=== PATIENT | female | born 1950 | race Caucasian/White ===

== ENCOUNTER 2021-08-15 08:20 | Day surgery (SDC) | payer MEDICARE ==
[~2021-08-15] VITALS: Ht 162.6 cm; Wt 95.0 kg
[~2021-08-15 08:20] MED LIST: CLARITIN10 M1 PO; IBUPROFEN600 MG PO; PENICILLIN V P250 MG PO; PREDNISONE20 MG PO; PRILOSEC10 M1 PO; PROVENTIL HFA6.7 GM INH; TYLENOL325 MG PO; ZYRTEC10 M1 PO; ZYRTEC10 MG PO
[2021-08-15] MEDS ORDERED: IBUPROFEN600 MG PO (11:47)
[2021-08-15] MEDS ORDERED: OXYCODON-ACETA1 EAC2 PO (11:48)
[2021-08-15] MEDS ORDERED: ACETAMINOPHEN500 MG PO (11:48)
--- NOTE | 2021-08-18 15:05 | OR ---
[facility] [address] [place], [place] [address] Signed DATE OF OPERATION: 08/15/2021 SURGEON: Andrew Talbot MD PREOPERATIVE DIAGNOSIS: Posterior anal mass suspicious for renal carcinoma. POSTOPERATIVE DIAGNOSES: 1. Anal carcinoma. 2. Extensive involvement including fibrotic sphincter and ulceration, low rectum. 3. Possible posterior vaginal extension of tumor. PROCEDURES: 1. Exam under anesthesia. 2. Rigid proctoscopy to 18 cm. 3. Excision of anal tumor. 4. Biopsies posterior vaginal wall. ANESTHESIA: Saddle block, Emilio Lundy, MANAGER HUMAN RESOURCES INDICATIONS: This 71-year-old white woman is urgently referred by KRYSTAL Kendall with an anal mass worrisome for malignancy based on clinical examination in the office. She has a considerable amount of pain associated with this and evaluation in office showed a protruding, firm and rubbery mass in the anal canal, which was exquisitely tender and unable to be manipulated or even reasonably biopsied. 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 She has had nonresponse to treatment for presumed hemorrhoidal disease for the past 4-6 months. I have recommended at this time she undergo exam under anesthesia and excision of the tumor if possible, biopsies and other indicated procedures including rigid proctoscopy. Risk of bleeding, infection, and so forth were related to this problem were reviewed in detail. She understands and wished to proceed. FINDINGS: In the prone chad-knife position, good examination could be undertaken. Quite obviously, she does have anal carcinoma. A butterfly Wing type neoplasm was noted in Electronically Signed By: ANDREW TALBOT MD 08/18/21 1505 PATIENT NAME: HEDY MORA OPERATIVE REPORT DATE OF : 50 REPORT #: [id number] PHYSICIAN: ANDREW TALBOT MD PCP: KIMBERLI ATWOOD PAC REPORT IS CONFIDENTIAL AND NOT TO BE RELEASED WITHOUT AUTHORIZATION [facility] [address] [place], [place] [address] Signed the anterior aspect extending from approximately 4 o'clock to 8 o'clock position cephalad to this in the region, which would correspond to the dentate line with deep ulceration. Cephalad to that was essentially rectal mucosa from the ulcerated area. The affect of the tumor included penetration into the sphincter complex almost certainly. Posterior vaginal canal examination showed near continuity of the neoplasm ulceration to the posterior wall. Biopsies were taken of the deep ulcerated portion as well as the neoplasm of the anal area externally as well. Biopsies were additionally taken from the posterior vaginal wall to assess for direct penetration of tumor to the posterior vaginal wall. It was somewhat surprising that she has not had compromised the sphincter muscle given the clinical findings. DESCRIPTION OF PROCEDURE: The patient was brought to the operating room, given a saddle block anesthetic and placed in a prone chad-knife position. Preoperative antibiotics were given. Sequential compression device stockings used and heparin subcutaneously administered. The buttocks were taped apart and the perineum prepared with a chlorhexidine solution and draped sterilely. Examination under relaxation showed a butterfly like configuration of quite obvious anal carcinoma extruding through the anal canal. Cephalad to this was a deep ulcerated area anteriorly. Cephalad to that was a rectal mucosa which had essentially from the anal canal area itself. Digital examination confirmed these findings more fully. The posterior vaginal examination showed a density in the rectovaginal septum. No doubt related to penetration of tumor into that area. Rigid proctoscopy after irrigation was undertaken to approximately 18 cm, which showed no more proximal lesion. Photographs were taken. Biopsies were then taken of the deep ulcerated area as well as the more proximal and peripheral areas of the ulcerated portion. The bulky anal tumor was excised with electrocautery down to, but not penetrating through the sphincter muscle, which almost certainly was involved; it appeared very fibrotic and probably tumor infiltrated. Careful palpation the deep ulcerated area of the rectum anteriorly in continuity with a palpation of the rectovaginal septum from the vaginal side made it clear as imminent rectovaginal fistula would be forming. Using a cup biopsy device, biopsies were taken the posterior vaginal wall in this area to assess the extent of tumor penetration if any. Electronically Signed By: ANDREW TALBOT MD 08/18/21 1505 PATIENT NAME: HEDY MORA OPERATIVE REPORT DATE OF : 50 REPORT #: [id number] PHYSICIAN: ANDREW TALBOT MD PCP: KIMBERLI ATWOOD [facility] REPORT IS CONFIDENTIAL AND NOT TO BE RELEASED WITHOUT AUTHORIZATION [address] [address] Signed Irrigation was undertaken. There was no untoward bleeding. Both sites were packed with rolled Gel-Foam with bacitracin. The patient was returned to the supine position, ultimately taken to the recovery room in good condition having suffered no complications. Sponge, needle, and instrument counts reported as correct x3. MD WILIAN Gracia/ERICAL /[id number] cc: Roni Beaver MD, PH.D. KRYSTAL Kendall MD Copies: RONI BEAVER ROBERT C MD ~ Electronically Signed By: ANDREW TALBOT MD 08/18/21 1505 PATIENT NAME: HEDY MORA OPERATIVE REPORT DATE OF : 50 REPORT #: [id number] PHYSICIAN: ANDREW TALBOT MD PCP: KIMBERLI ATWOOD PAC REPORT IS CONFIDENTIAL AND NOT TO BE RELEASED WITHOUT AUTHORIZATION
--- NOTE | 2021-08-19 15:55 | PATH ---
[facility] [address] [place], [place] [address] Signed SPECIMEN(S): A LOW RECTAL BIOPSY SPECIMEN(S): B ANAL TUMOR SPECIMEN(S): C LOW POSTERIOR VAGINAL WALL SPECIMEN SOURCE: A. LOW RECTAL BIOPSY B. ANAL TUMOR C. LOW POSTERIOR VAGINAL WALL CLINICAL HISTORY: Anal mass. History of HPV. Rigid proctoscopy with biopsy of anorectal mass and possible excision of rectal tumor. FINAL PATHOLOGIC DIAGNOSIS: A. Low rectal, biopsies: - Invasive squamous cell carcinoma, poorly differentiated. B. Anal tumor resection: - Invasive squamous cell carcinoma, poorly differentiated, involving deep and lateral resection margins; see comment. C. Low posterior vaginal wall, biopsies: - Invasive squamous cell carcinoma, poorly differentiated. COMMENT: Properly controlled immunohistochemical stains were performed on block B3. The tumor cells are positive for p63 and show strong, diffuse block positivity for p16. 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 A diagnostic alert was initiated by Dr. Noonan on 08/19/2021. As part of [facility]' Quality Improvement Program, this case was reviewed by another member of our pathology staff. DDF:cml:C1NR MICROSCOPIC EXAMINATION: Histologic sections of all submitted blocks are examined by light microscopy. These findings, together with the gross examination, support the pathologic diagnosis. GROSS DESCRIPTION: Three specimens are received in three containers, labeled "IG." A. The specimen, labeled "IG, A," and designated on the requisition "low rectal biopsy," is received in formalin and consists of multiple fragments of PATIENT NAME: HEDY MORA PATHOLOGY DATE OF : 50 REPORT #: [id number] PHYSICIAN: TRACIE LAM PCP: KIMBERLI ATWOOD PAC REPORT IS CONFIDENTIAL AND NOT TO BE RELEASED WITHOUT AUTHORIZATION [facility] [address] [place], [place] [address] Signed red-brown soft tissue (1.5 x 0.7 x 0.2 cm in aggregate). The specimen is submitted entirely in cassette (A1). B. The specimen, labeled "IG, B," and designated on the requisition "anal tumor," is received in formalin and consists of a portion of pink-murguia, fragmented and irregularly shaped soft tissue (4.8 x 2.4 x 1.4 cm). The resection margin is inked blue and the specimen is serially sectioned and submitted entirely in cassettes (B1-B4). C. The specimen, labeled "IG, C," and designated on the requisition "low posterior vaginal wall," is received in formalin and consists of multiple fragments of murguia soft tissue (1.5 x 0.8 x 0.2 in aggregate). The specimen is submitted entirely in cassette (C1). AC (under the direct supervision of a pathologist) The Gross Description was prepared using a voice recognition system. The report was reviewed for accuracy; however, sound-alike word errors, addition and/or deletions may occur. If there is any question about this report, please contact Client Services. ADDITIONAL NOTES: Immunohistochemical and/or in situ hybridization studies were performed on this case with the appropriate positive controls that react as expected. This test was developed and its performance characteristics determined by [facility]. It has not been cleared or approved by the U.S. Food and Drug Administration. The FDA has determined that such clearance or approval is not necessary. This test is used for clinical purposes. It should not be regarded as investigational or for research. [facility] is certified under the Clinical Laboratory Improvement Amendments of 1988 (CLIA) as qualified to perform high complexity clinical laboratory testing. This assay has not been validated for specimens that have been decalcified. PERFORMING LABORATORY: The technical component was performed by [facility], [address] [place] [id number] (Link Cutter: Noreen Huynh MD; CLIA# [id number]). [facility], [address] [address] (CLIA# [id number]). Diagnostician: Jose D Noonan DO Pathologist Electronically Signed 08/19/2021 PATIENT NAME: HEDY MORA PATHOLOGY DATE OF : 50 REPORT #: [id number] PHYSICIAN: TRACIE LAM PCP: KIMBERLI ATWOOD PAC REPORT IS CONFIDENTIAL AND NOT TO BE RELEASED WITHOUT AUTHORIZATION [facility] [address] [place], [place] [address] Signed Copies: ~ PATIENT NAME: HEDY MORA PATHOLOGY DATE OF : 50 REPORT #: [id number] PHYSICIAN: TRACIE PATHOLOGY PCP: KIMBERLI ATWOOD PAC REPORT IS CONFIDENTIAL AND NOT TO BE RELEASED WITHOUT AUTHORIZATION
== END 2021-08-15 12:20 | disposition home or self-care (01) ==
LOC: DS 08:20
PROVIDERS: ATTEND Surgery
PROC: 0UBG7ZX Excision of Vagina, Via Natural or Artificial Opening, Diagnostic (ICD-10-PCS; 2021-08-15)
PROC: 0DBP8ZX Excision of Rectum, Via Natural or Artificial Opening Endoscopic, Diagnostic (ICD-10-PCS; principal; 2021-08-15 11:15)
DX: C20 Malignant neoplasm of rectum (principal); C21.0 Malignant neoplasm of anus, unspecified; C52 Malignant neoplasm of vagina; J45.909 Unspecified asthma, uncomplicated; Z86.19 Personal history of other infectious and parasitic diseases; Z88.2 Allergy status to sulfonamides; Z88.8 Allergy status to other drugs, medicaments and biological substances
CPT/HCPCS: 00902; J0690; J2001; J2250; J2704

== ENCOUNTER 2021-08-28 06:35 | Day surgery (SDC) | payer MEDICARE ==
[~2021-08-28] VITALS: Ht 162.6 cm; Wt 95.0 kg
[~2021-08-28 06:35] MED LIST changes: +ACETAMINOPHEN500 MG PO; +OXYCODON-ACETA1 EAC2 PO
--- NOTE | 2021-08-28 10:45 | NUR ---
08/28/21 1045 Ej Leger RESPONDS TO TAP AND VOICE AT 1042. REORIENTED TO TIME AND SITUATION. UNABLE TO RESPOND TO QUESTIONS YET.
[2021-08-28] MEDS ORDERED: ACETAMINOPHEN500 MG PO (10:59)
[2021-08-28] MEDS ORDERED: OXYCODON-ACETA1 EAC2 PO (10:59)
--- NOTE | 2021-08-28 13:15 | NUR ---
PT ALERT, OREINTED AND SUPPORTED BY HER DAUGHTER LEORA. PT EMBARRASED THAT SHE HAS NOT HAVE HER TEETH IN. GAVE ENCOURAGEMENT, ALL QUESTIONS ASKED ANSWERED. PT DECLINED PRAYER, GOT EMOTIONAL. THANKED ME FOR COMING IN.
--- NOTE | 2021-08-28 19:31 | OR ---
[facility] [address] [place], [place] [address] Signed DATE OF OPERATION: 08/28/2021 SURGEON: Andrew Talbot MD PREOPERATIVE DIAGNOSIS: Advanced anal carcinoma, anticipating chemotherapy. POSTOPERATIVE DIAGNOSIS: Advanced anal carcinoma, anticipating chemotherapy. PROCEDURES: 1. Placement of left subclavian Bard port catheter. 2. Surgeon-directed fluoroscopy. ANESTHESIA: LMAC (local with monitored anesthesia care) Roberta Celestin CRNA. Marcaine 0.25% with epinephrine 15 mL. INDICATION: This 71-year-old white woman is a patient of Kimberli Atwood. She recently underwent exam under anesthesia and excision of an anal carcinoma, which has rather advanced local features. Plans are underway to initiate chemotherapy soon in addition to radiation therapy. On that basis, a Port-A-Cath device is needed on a somewhat urgent basis. Consideration has been made for a diverting colostomy as well given the advanced nature of the problem and might soon be considered as well. For today, she is here to undergo Port-A-Cath device placement understanding the risks of bleeding, infection, pneumothorax and so on. Of note, the patient prefers a left infraclavicular approach if possible rather than a right-sided internal jugular approach as she is right-hand dominant and believes that might impair her activities (generally would not of course). FINDINGS: Left subclavian vein was easily accessed on single pass showing dark nonpulsatile blood. The catheter was placed with the assistance of fluoroscopic control situated in the superior vena cava. Postoperative chest x-ray shows good placement of the catheter without kink or abnormality and no evidence of complication. DESCRIPTION OF PROCEDURE: The patient was brought to the operating room, placed in the supine position, given intravenous sedation with a combination of agents by the template fitter. The upper torso including neck, bilateral was prepared with a chlorhexidine solution and draped Electronically Signed By: ANDREW TALBOT MD 08/28/211930 PATIENT NAME: HEDY MORA OPERATIVE REPORT DATE OF : 50 REPORT #: [id number] PHYSICIAN: ANDREW TALBOT MD PCP: KIMBERLI ATWOOD PAC REPORT IS CONFIDENTIAL AND NOT TO BE RELEASED WITHOUT AUTHORIZATION [facility] [address] [place], [place] [address] Signed sterilely. Preoperative antibiotic Ancef was given. Sequential compression device stockings were used. After sterile draping, 0.25% Marcaine with epinephrine injected in the left infraclavicular space. Using the Seldinger technique, the left subclavian vein was easily accessed showing dark nonpulsatile blood. A flexible J-wire was passed down the needle and the needle was then removed. Fluoroscopy was used to confirm the wire in the right heart system. Injection of additional local anesthetic transversely over the left pectoralis was undertaken. A transverse incision was made and a pocket created using blunt and electrocautery dissection. A port device was partially secured to the pectoralis fascia. This was using 2-0 Vicryl suture. The site from which the wire emanating was incised with an #11 blade and subsequently dilated and using a dilator and peel-away sheath introducer, these were passed over the wire. The wire and the dilator were removed showing vigorous dark retrograde nonpulsatile bleeding of dark blood. The previously inspected Groshong-tip catheter was passed through the peel-away introducer and the peel-away introducer removed without problem. The patient was taken out of Trendelenburg position and placed in neutral position and under fluoroscopic control, the catheter was withdrawn and situated in the superior vena cava. A tunneling device was used to deliver the catheter to the pocket. The catheter was trimmed to the appropriate length and secured to the port device with the enclosed collar device per manufacture's instructions. The port was then secured to the pectoralis fascia with interrupted 2-0 Vicryl suture, which had been partially placed already. Access of the port with an angled Causey needle allowed for easy withdrawal of dark non-pulsatile blood and easy infusion as well. An additional fluoroscopic view of the situated catheter showed no kink or other abnormality to the device. The pocket was then closed with interrupted 2-0 Vicryl and skin closed with running subcuticular 3-0 Vicryl including the puncture site in the infraclavicular space. Steri-Strips were applied as was an Acticoat dressing. The patient was ultimately allowed to emerge from anesthesia and taken to recovery room in good condition having suffered no known complications. Sponge, needle, and instrument counts reported as correct x3. Electronically Signed By: ANDREW TALBOT MD 08/28/211930 PATIENT NAME: HEDY MORA OPERATIVE REPORT DATE OF : 50 REPORT #: [id number] PHYSICIAN: ANDREW TALBOT MD PCP: KIMBERLI ATWOOD PAC REPORT IS CONFIDENTIAL AND NOT TO BE RELEASED WITHOUT AUTHORIZATION [address], [place] [address] Signed Andrew Talbot MD /MODL /[id number] cc: Roni Boland MD, PH.D. KRYSTAL Monet MD Copies: RONI BOLAND ROBERT C MD ~ Electronically Signed By: ANDREW TALBOT MD 08/28/211930 PATIENT NAME: HEDY MORA OPERATIVE REPORT DATE OF : 50 REPORT #: [id number] PHYSICIAN: ANDREW TALBOT MD PCP: KIMBERLI ATWOOD PAC REPORT IS CONFIDENTIAL AND NOT TO BE RELEASED WITHOUT AUTHORIZATION
== END 2021-08-28 11:50 | disposition home or self-care (01) ==
LOC: DS 06:35
PROVIDERS: ATTEND Surgery
PROC: 05H633Z Insertion of Infusion Device into Left Subclavian Vein, Percutaneous Approach (ICD-10-PCS; principal; 2021-08-28 09:00)
DX: C21.1 Malignant neoplasm of anal canal (principal); J43.9 Emphysema, unspecified; K21.9 Gastro-esophageal reflux disease without esophagitis; Z20.822 Contact with and (suspected) exposure to COVID-19; Z88.2 Allergy status to sulfonamides; Z86.19 Personal history of other infectious and parasitic diseases; Z87.891 Personal history of nicotine dependence
CPT/HCPCS: 00532; 71045; 77001; J0690; J1644; J1885; J2001; J2250; J2704; J3010; J7121; U0003

== ENCOUNTER 2023-10-23 09:09 | Emergency (ER) | payer MEDICARE ==
[~2023-10-23] VITALS: Ht 165.1 cm; Wt 85.7 kg
[~2023-10-23 09:09] MED LIST changes: +ALBUTEROL2.5 MG/3 M INH; +CALCIUM 600 MG1 EA10 PO; +CYCLOBENZAPRINE10 MG PO; +DEXAMETHASONE4 MG PO; +ENOXAPARIN80 MG/0.8 SUB-Q; +FLUTICASONE-SA1 EAC4 INH; +JANTOVEN5 MG PO; +LIPITOR20 MG PO; +LORAZEPAM1 MG PO; +METOPROLOL SUCC25 MG PO; +ONDANSETRON ODT8 MG PO; +POTASSIUM CHLO20 ME1 PO; +PRILOSEC OTC20 MG PO; -PRILOSEC10 M1 PO; +VENTOLIN HFA18 GM INH; +WARFARIN SODIUM1 MG PO
[2023-10-23] MEDS ORDERED: SODIUM CHLORIDE 0.9% 1,000 ML IV ONE (09:30)
[2023-10-23] MEDS ORDERED: ondansetron HCL 4 MG/2 ML VIAL IV PRN (09:30)
[2023-10-23 09:57] LABS: BASOPHILS 0.1 % (0-2); HEMATOCRIT 36.3 % (35.0-50.0); HEMOGLOBIN 12.1 g/dL (12.0-18.0); LYMPHOCYTES 3.5 % (24-44); MCH 30.5 (27-36); MCHC 33.4 g/dl (30-36); MCV 91.5 fl (81-99); MONOCYTES 4.1 % (0-12); NEUTROPHILS 92.3 % (39-80); PLATELET COUNT 130 K/uL (140-440); RBC 3.97 M/ul (4.3-5.7)
[2023-10-23 10:19] LABS: INFLUENZA B NAA NEGATIVE (NEGATIVE); RESPIRATORY SYNCYTIAL VIR NAA NEGATIVE (NEGATIVE)
[2023-10-23 10:24] LABS: ALBUMIN 2.4 g/dL (3.4-5.0); ALBUMIN/GLOBULIN RATIO 0.44 (1.1-2.4); BILIRUBIN, TOTAL 0.9 ng/dL (0.2-1.0); BUN/CREATININE RATIO 18.85 (6.0-28.6); CALCIUM 9.3 mg/dL (8.5-10.1); CREATININE, SERUM 1.22 mg/dL (0.55-1.02); PROTEIN, TOTAL 7.9 g/dL (6.4-8.2)
[2023-10-23 10:26] LABS: BILIRUBIN, URINE NEGATIVE (negative); BLOOD/HGB, URINE LARGE (Negative); KETONE, URINE SMALL (Negative); LEUK ESTERASE, URINE TRACE (negative); NITRITE, URINE POSITIVE (negative); PH, URINE 5.5 (5-7)
[2023-10-23 10:31] LABS: BACTERIA, URINE 3+ /hpf (negative); EPITHELIAL CELLS, URINE SQUAMOUS 2+ /lpf (0-1+)
[2023-10-23 10:32] LABS: REFLEX CULTURE, URINE Yes (No)
[2023-10-23] MEDS ORDERED: CEFTRIAXONE/SODIUM CHLORIDE 1 GM/100 ML PIGGYBACK IV ONE (11:15)
[2023-10-23] MEDS ORDERED: CEPHALEXIN500 M1 PO (11:17)
[2023-10-23] MEDS ORDERED: SODIUM CHLORIDE 0.9% 100 ML IV SCH (11:45)
[2023-10-23 12:35] VITALS: BP 112/48
--- NOTE | 2023-10-23 13:08 | EKG ---
[facility] [address] [facility] [place] [address] \T\ T wave abnormality, consider anterolateral ischemia Abnormal ECG When compared with ECG of 09-APR-2023 11:24, Sinus rhythm has replaced Atrial fibrillation Vent. rate has decreased BY 91 BPM Confirmed by Italia Ballard MD () on 10/23/2023 1:08:27 PM Electronically Signed By: ITALIA BALLARD MD 10/23/23 1308 PATIENT NAME: HEDY MORA Electrocardiogram DATE OF : 50 PHYSICIAN: ITALIA BALLARD MD REPORT #: [id number] REPORT IS CONFIDENTIAL AND NOT TO BE RELEASED WITHOUT AUTHORIZATION
== END 2023-10-23 12:35 | disposition home or self-care (01) ==
LOC: ED 09:09
PROVIDERS: Emergency Medicine
DX: N39.0 Urinary tract infection, site not specified (principal); J45.909 Unspecified asthma, uncomplicated; Z88.2 Allergy status to sulfonamides; Z88.1 Allergy status to other antibiotic agents; Z91.048 Other nonmedicinal substance allergy status; Z88.8 Allergy status to other drugs, medicaments and biological substances; Z79.51 Long term (current) use of inhaled steroids; Z79.01 Long term (current) use of anticoagulants
CPT/HCPCS: 36415; 51701; 71045; 80053; 81001; 84484; 85025; 87088; 87502; 93005; 93010; 99285-25; J0696; J2405; J7030; U0002

== ENCOUNTER 2024-03-04 16:03 | Inpatient (IN) | payer MEDICARE ==
[~2024-03-04] VITALS: Ht 165.1 cm; Wt 90.1 kg
[~2024-03-04 16:03] MED LIST changes: +CEPHALEXIN500 M1 PO
[2024-03-04 16:52] LABS: BASOPHILS 0.2 % (0-2); HEMATOCRIT 37.7 % (35.0-50.0); HEMOGLOBIN 12.9 g/dL (12.0-18.0); MCH 30.7 (27-36); MCHC 34.1 g/dl (30-36); MCV 89.8 fl (81-99); MONOCYTES 2.1 % (0-12); NEUTROPHILS 95.7 % (39-80); PLATELET COUNT 164 K/uL (140-440); RDW 14.8 (10.5-15.0)
[2024-03-04 16:59] LABS: LACTIC ACID, BLOOD 1.4 mmol/L (0.4-2.0)
[2024-03-04] MEDS ORDERED: SODIUM CHLORIDE 0.9% 1,000 ML IV PRN (17:00)
[2024-03-04] MEDS ORDERED: CEFTRIAXONE/SODIUM CHLORIDE 2 GM/100 ML PIGGYBACK IV ONE (17:00)
[2024-03-04 17:01] LABS: ALBUMIN 2.9 g/dL (3.4-5.0); ALBUMIN/GLOBULIN RATIO 0.59 (1.1-2.4); BILIRUBIN, TOTAL 1.2 ng/dL (0.2-1.0); BUN/CREATININE RATIO 14.54 (6.0-28.6); CALCIUM 8.2 mg/dL (8.5-10.1); CREATININE, SERUM 1.1 mg/dL (0.55-1.02); PROTEIN, TOTAL 7.8 g/dL (6.4-8.2)
[2024-03-04 19:00] LABS: BILIRUBIN, URINE POSITIVE (negative); BLOOD/HGB, URINE LARGE (Negative); KETONE, URINE NEGATIVE (Negative); LEUK ESTERASE, URINE NEGATIVE (negative); NITRITE, URINE NEGATIVE (negative); PH, URINE 6.5 (5-7)
[2024-03-04 19:11] LABS: CRYSTALS, URINE NONE SEEN (0-1+); EPITHELIAL CELLS, URINE SQUAMOUS 1+ /lpf (0-1+)
[2024-03-04 19:12] LABS: BACTERIA, URINE 1+ /hpf (negative); CASTS, URINE NONE SEEN \\lpf; COLLECTION TYPE, URINE CLEAN CATCH; REFLEX CULTURE, URINE Yes (No)
[2024-03-04] MEDS ORDERED: ondansetron HCL 4 MG/2 ML VIAL IV PRN (20:30)
[2024-03-04] MEDS ORDERED: ACETAMINOPHEN 325 MG TAB PO PRN (20:30)
[2024-03-04] MEDS ORDERED: MELATONIN 3 MG TAB PO PRN (21:00)
[2024-03-04 21:22] VITALS: BP 111/46
[2024-03-04 21:23] VITALS: BP 111/46
[2024-03-04] MEDS ORDERED: DAPTOmycin 500 MG/10 ML VIAL IV SCH (22:00)
[2024-03-04] MEDS ORDERED: SODIUM CHLORIDE 0.9% 1,000 ML IV SCH (22:45)
[2024-03-05] VITALS (12 sets, daily range): BP systolic 101–138; BP diastolic 42–54
[2024-03-05] MEDS ORDERED: ALBUTEROL SULFATE 0.083% 3 ML VIAL INH PRN (02:45)
[2024-03-05 05:58] LABS: BASOPHILS 0.1 % (0-2); HEMATOCRIT 34.9 % (35.0-50.0); HEMOGLOBIN 11.7 g/dL (12.0-18.0); LYMPHOCYTES 3.4 % (24-44); MCH 30.6 (27-36); MCHC 33.5 g/dl (30-36); MCV 91.2 fl (81-99); MONOCYTES 2.5 % (0-12); PLATELET COUNT 131 K/uL (140-440); RBC 3.83 M/ul (4.3-5.7); RDW 15.2 (10.5-15.0)
[2024-03-05 06:10] LABS: INR 1.96 (0.80-1.30); PROTIME 21.4 Sec (11.2-14.2)
[2024-03-05 06:16] LABS: ALBUMIN 2.4 g/dL (3.4-5.0); ALBUMIN/GLOBULIN RATIO 0.56 (1.1-2.4); ANION GAP 12.7 (7-21); BILIRUBIN, TOTAL 0.8 ng/dL (0.2-1.0); BUN/CREATININE RATIO 18.18 (6.0-28.6); CALCIUM 7.8 mg/dL (8.5-10.1); CREATININE, SERUM 0.88 mg/dL (0.55-1.02); MAGNESIUM 1.8 mg/dL (1.8-2.4); PHOSPHORUS, INORGANIC 2.6 mg/dL (2.5-4.9); POTASSIUM 3.7 mmol/L (3.5-5.1); PROTEIN, TOTAL 6.7 g/dL (6.4-8.2)
[2024-03-05] MEDS ORDERED: WARFARIN SOD 2 MG TAB PO SCH (09:00)
[2024-03-05] MEDS ORDERED: AZITHROMYCIN 500 MG in DEXTROSE 5% 250 ML IV SCH (09:00)
[2024-03-05] MEDS ORDERED: MICONAZOLE NITRATE 1 EA BTL TOP SCH (09:00)
[2024-03-05] MEDS ORDERED: PHARMACY RENAL DOSE ADJUSTMENT 1 DOSE MISC PO SCH (12:00)
[2024-03-05] MEDS ORDERED: METOPROLOL SUCCINATE 25 MG TABCR PO SCH (12:39)
[2024-03-05] MEDS ORDERED: CETIRIZINE HCL 10 MG TAB PO SCH (12:39)
[2024-03-05] MEDS ORDERED: PANTOPRAZOLE SODIUM 40 MG TABEC PO SCH (12:39)
[2024-03-05] MEDS ORDERED: CLOTRIMAZOLE 1% 30 GM TUBE TOP SCH (12:52)
[2024-03-05] MEDS ORDERED: WARFARIN PER PHARMACY PROTOCOL PO SCH (16:00)
[2024-03-05] MEDS ORDERED: CEFTRIAXONE/SODIUM CHLORIDE 2 GM/100 ML PIGGYBACK IV SCH (16:00)
[2024-03-05] MEDS ORDERED: ATORVASTATIN 20 MG TAB PO SCH (21:00)
--- NOTE | 2024-03-05 22:33 | EKG ---
[facility] [address] [facility] [place] [address] Signed Normal sinus rhythm Low voltage QRS Nonspecific ST and T wave abnormality Abnormal ECG When compared with ECG of 23-OCT-2023 09:32, Nonspecific T wave abnormality has replaced inverted T waves in Anterior leads Confirmed by Italia Ballard MD () on 03/05/2024 10:33:43 PM Electronically Signed By: ITALIA BALLARD MD 03/05/24 2233 PATIENT NAME: HEDY MORA Electrocardiogram DATE OF : 50 PHYSICIAN: ITALIA BALLARD MD REPORT #: [id number] REPORT IS CONFIDENTIAL AND NOT TO BE RELEASED WITHOUT AUTHORIZATION
[2024-03-06] VITALS (10 sets, daily range): BP systolic 103–118; BP diastolic 47–53
[2024-03-06 05:42] LABS: BASOPHILS 0.2 % (0-2); EOSINOPHILS 3.3 % (0-6); HEMOGLOBIN 10.6 g/dL (12.0-18.0); LYMPHOCYTES 5.5 % (24-44); MCH 30.5 (27-36); MCHC 32.9 g/dl (30-36); MCV 92.5 fl (81-99); MONOCYTES 4.3 % (0-12); NEUTROPHILS 86.7 % (39-80); PLATELET COUNT 122 K/uL (140-440); RBC 3.46 M/ul (4.3-5.7); RDW 14.9 (10.5-15.0)
[2024-03-06 05:58] LABS: ALBUMIN/GLOBULIN RATIO 0.48 (1.1-2.4); ANION GAP 10.7 (7-21); BILIRUBIN, TOTAL 0.4 ng/dL (0.2-1.0); CALCIUM 7.8 mg/dL (8.5-10.1); CREATININE, SERUM 0.75 mg/dL (0.55-1.02); POTASSIUM 3.7 mmol/L (3.5-5.1); PROTEIN, TOTAL 6.2 g/dL (6.4-8.2)
[2024-03-06 06:00] LABS: INR 2.06 (0.80-1.30); PROTIME 22.3 Sec (11.2-14.2)
[2024-03-06 08:00] LABS: PROCALCITONIN 1.04 ng/mL (())
[2024-03-06] MEDS ORDERED: WARFARIN SOD 1 MG TAB PO SCH (09:00)
[2024-03-06] MEDS ORDERED: diphenhydrAMINE 2% CREAM TUBE TOP PRN (11:30)
[2024-03-06] MEDS ORDERED: MAGNESIUM OXID400 M1 PO (12:56)
[2024-03-07] VITALS (8 sets, daily range): BP systolic 110–129; BP diastolic 45–58
[2024-03-07 05:49] LABS: INR 2.31 (0.80-1.30); PROTIME 24.4 Sec (11.2-14.2)
[2024-03-07] MEDS ORDERED: WARFARIN SOD 2 MG TAB PO SCH (09:00)
[2024-03-08] VITALS (10 sets, daily range): BP systolic 106–126; BP diastolic 43–61
[2024-03-08 06:21] LABS: INR 2.39 (0.80-1.30); PROTIME 25.1 Sec (11.2-14.2)
[2024-03-08] MEDS ORDERED: WARFARIN SOD 1 MG TAB PO SCH (09:00)
[2024-03-09 05:39] VITALS: BP 130/63
[2024-03-09 05:57] LABS: INR 2.42 (0.80-1.30); PROTIME 25.9 Sec (11.2-14.2)
[2024-03-09 09:06] VITALS: BP 134/59
[2024-03-09 09:36] VITALS: BP 134/59
[2024-03-09] MEDS ORDERED: CEPHALEXIN500 M1 PO (09:44)
[2024-03-09 12:24] VITALS: BP 153/69
[2024-03-09 12:53] VITALS: BP 153/69
== END 2024-03-09 12:35 | disposition home or self-care (01) | DRG 871 ==
LOC: ED 16:03 → MS 20:31
PROVIDERS: Emergency Medicine; ADMIT Family Medicine; ATTEND Family Medicine
DX: A41.9 Sepsis, unspecified organism (principal); J18.9 Pneumonia, unspecified organism; L03.116 Cellulitis of left lower limb; N39.0 Urinary tract infection, site not specified; J45.909 Unspecified asthma, uncomplicated; I48.91 Unspecified atrial fibrillation; R11.2 Nausea with vomiting, unspecified; Z98.890 Other specified postprocedural states; Z98.51 Tubal ligation status; Z88.8 Allergy status to other drugs, medicaments and biological substances; Z88.2 Allergy status to sulfonamides; Z91.048 Other nonmedicinal substance allergy status; Z79.899 Other long term (current) drug therapy; Z79.01 Long term (current) use of anticoagulants; Z79.51 Long term (current) use of inhaled steroids; Z85.048 Personal history of other malignant neoplasm of rectum, rectosigmoid junction, and anus
CPT/HCPCS: 36415; 71045; 80053; 81001; 82553; 83605; 83735; 84100; 85025; 85610; 85651; 86140; 87088; 93005; 93010; 94640; 94760; A9270; J0456; J0696; J0878; J2405; J7030; J7060

== ENCOUNTER 2024-08-30 00:27 | Emergency (ER) | payer MEDICARE ==
[~2024-08-30] VITALS: Ht 165.1 cm; Wt 98.1 kg
[~2024-08-30 00:27] MED LIST changes: +DIPHENOXYLATE-1 EACH PO; +MAGNESIUM OXID400 M1 PO
[2024-08-30 01:08] LABS: BASOPHILS 0.2 % (0-2); EOSINOPHILS 0.2 % (0-6); HEMATOCRIT 34.1 % (35.0-50.0); HEMOGLOBIN 11.4 g/dL (12.0-18.0); MCH 30.3 (27-36); MCHC 33.5 g/dl (30-36); MCV 90.3 fl (81-99); NEUTROPHILS 93.6 % (39-80); PLATELET COUNT 159 K/uL (140-440); RBC 3.77 M/ul (4.3-5.7); RDW 14.9 (10.5-15.0)
[2024-08-30 01:25] LABS: LACTIC ACID, BLOOD 0.6 mmol/L (0.4-2.0)
[2024-08-30 01:28] LABS: BILIRUBIN, URINE NEGATIVE (negative); BLOOD/HGB, URINE LARGE (Negative); KETONE, URINE SMALL (Negative); LEUK ESTERASE, URINE NEGATIVE (negative); NITRITE, URINE POSITIVE (negative); PH, URINE 7.5 (5-7)
[2024-08-30] MEDS ORDERED: ALBUTEROL/IPRATROPIUM 3 ML NEB INH ONE (01:30)
[2024-08-30 01:32] LABS: ALBUMIN 2.9 g/dL (3.4-5.0); ALBUMIN/GLOBULIN RATIO 0.67 (1.1-2.4); ANION GAP 13.1 (7-21); BILIRUBIN, TOTAL 0.9 ng/dL (0.2-1.0); BUN/CREATININE RATIO 21.15 (6.0-28.6); CALCIUM 8.7 mg/dL (8.5-10.1); CREATININE, SERUM 1.04 mg/dL (0.55-1.02); POTASSIUM 4.1 mmol/L (3.5-5.1); PROTEIN, TOTAL 7.2 g/dL (6.4-8.2)
[2024-08-30 01:37] LABS: RED BLOOD CELLS, URINE 21-40 /hpf (0-5)
[2024-08-30 01:38] LABS: BACTERIA, URINE 2+ /hpf (negative); CASTS, URINE NONE SEEN \\lpf; COLLECTION TYPE, URINE CLEAN CATCH; CRYSTALS, URINE NONE SEEN (0-1+); EPITHELIAL CELLS, URINE SQUAMOUS 1+ /lpf (0-1+); REFLEX CULTURE, URINE Yes (No)
[2024-08-30 01:44] LABS: INFLUENZA B NAA NEGATIVE (NEGATIVE); RESPIRATORY SYNCYTIAL VIR NAA NEGATIVE (NEGATIVE)
[2024-08-30] MEDS ORDERED: CEFTRIAXONE/SODIUM CHLORIDE 2 GM/100 ML PIGGYBACK IV ONE (01:45)
[2024-08-30] MEDS ORDERED: CEFDINIR300 MG PO (02:06)
[2024-08-30] MEDS ORDERED: PYRIDIUM200 MG PO (02:06)
[2024-08-30] MEDS ORDERED: CEFDINIR 300 MG HOME.PACK PO ONE (02:15)
[2024-08-30 02:55] VITALS: BP 116/53
[2024-08-30] MEDS ORDERED: ONDANSETRON 4 MG HOME.PACK SL ONE (03:00)
== END 2024-08-30 02:55 | disposition home or self-care (01) ==
LOC: ED 00:27
PROVIDERS: Family Medicine
DX: N39.0 Urinary tract infection, site not specified (principal); J45.909 Unspecified asthma, uncomplicated; Z85.048 Personal history of other malignant neoplasm of rectum, rectosigmoid junction, and anus; Z88.2 Allergy status to sulfonamides; Z88.1 Allergy status to other antibiotic agents; Z88.8 Allergy status to other drugs, medicaments and biological substances; Z91.048 Other nonmedicinal substance allergy status; Z79.01 Long term (current) use of anticoagulants; Z79.899 Other long term (current) drug therapy
CPT/HCPCS: 36415; 51701; 71045; 80053; 81001; 83605; 85025; 87040; 87088; 87502; 94640; 99284-25; A9270; J0696; U0002

== ENCOUNTER 2024-11-07 21:40 | Inpatient (IN) | payer MEDICARE ==
[~2024-11-07] VITALS: Ht 165.1 cm; Wt 93.3 kg
[~2024-11-07 21:40] MED LIST changes: +CEFDINIR300 MG PO; +PYRIDIUM200 MG PO
[2024-11-07] MEDS ORDERED: CEFTRIAXONE SODIUM 2 GM in SODIUM CHLORIDE 0.9% 100 ML IV ONE (22:30)
[2024-11-07] MEDS ORDERED: SODIUM CHLORIDE 0.9% 1,000 ML IV ONE (22:30)
[2024-11-07 22:35] LABS: BASOPHILS 0.7 % (0-2); EOSINOPHILS 0.3 % (0-6); HEMATOCRIT 33.6 % (35.0-50.0); HEMOGLOBIN 11.4 g/dL (12.0-18.0); LYMPHOCYTES 1.3 % (24-44); MCH 30.1 (27-36); MCHC 34.1 g/dl (30-36); MCV 88.3 fl (81-99); MONOCYTES 1.7 % (0-12); PLATELET COUNT 212 K/uL (140-440); RDW 15.7 (10.5-15.0)
[2024-11-07] MEDS ORDERED: CEFTRIAXONE SODIUM 2 GM VIAL ONE (22:40)
[2024-11-07 22:58] LABS: PARTIAL THROMBOPLASTIN TIME 39.9 Sec (22.9-41.3)
[2024-11-07 22:59] LABS: INR 1.94 (0.80-1.30); PROTIME 22.1 Sec (11.2-14.2)
[2024-11-07 23:01] LABS: ALBUMIN/GLOBULIN RATIO 0.67 (1.1-2.4); BILIRUBIN, TOTAL 0.7 mg/dL (0.2-1.0); BUN/CREATININE RATIO 17.7 (6.0-28.6); CALCIUM 8.9 mg/dL (8.5-10.1); CREATININE, SERUM 0.96 mg/dL (0.55-1.02); PROTEIN, TOTAL 7.5 g/dL (6.4-8.2)
[2024-11-07 23:04] LABS: BILIRUBIN, URINE NEGATIVE (negative); BLOOD/HGB, URINE LARGE (Negative); KETONE, URINE NEGATIVE (Negative); LEUK ESTERASE, URINE NEGATIVE (negative); NITRITE, URINE NEGATIVE (negative)
[2024-11-07 23:04] LABS: LACTIC ACID, BLOOD 1.3 mmol/L (0.4-2.0)
[2024-11-07 23:11] LABS: BACTERIA, URINE RARE /hpf (negative); CASTS, URINE NONE SEEN \\lpf; COLLECTION TYPE, URINE CATH; CRYSTALS, URINE NONE SEEN (0-1+); EPITHELIAL CELLS, URINE 0 /lpf (0-1+); RED BLOOD CELLS, URINE 41-50 /hpf (0-5); REFLEX CULTURE, URINE No (No)
[2024-11-07 23:47] LABS: INFLUENZA B NAA NEGATIVE (NEGATIVE); RESPIRATORY SYNCYTIAL VIR NAA NEGATIVE (NEGATIVE)
[2024-11-08] VITALS (9 sets, daily range): BP systolic 111–134; BP diastolic 39–60
[2024-11-08] MEDS ORDERED: ACETAMINOPHEN 325 MG TAB PO PRN ×2 (01:15→12:45)
[2024-11-08] MEDS ORDERED: ALBUTEROL/IPRATROPIUM 3 ML NEB INH ONE (01:15)
[2024-11-08] MEDS ORDERED: ondansetron HCL 4 MG/2 ML VIAL IV PRN ×2 (01:15→12:45)
[2024-11-08] MEDS ORDERED: ALBUTEROL SULFATE 0.083% 3 ML VIAL INH PRN ×2 (01:15→10:30)
[2024-11-08] MEDS ORDERED: methylPREDNISolone SOD SUCC 125 MG/2 ML VIAL IV ONE (01:15)
--- NOTE | 2024-11-08 02:42 | NUR ---
this rn in room to complte admission, pt to floor from ed stretcher, transferred via transfer mattress. admission completed, family in room. no additional needs or concerns verbalized. call light in reach.
--- NOTE | 2024-11-08 03:45 | NUR ---
Pt admitted from the ER with asthma exacerbation and LLE cellulitis. Tele initiates, reading NSR. O2 at 2L NC, rest of VSS. Purewick in place due to weakness and not able to get up to BSC. Redness noted in mauricio area and LLE. Safety precautions maintained. Call light within reach. Will continue to monitor.
[2024-11-08 05:33] LABS: HEMATOCRIT 33.6 % (35.0-50.0); HEMOGLOBIN 11.2 g/dL (12.0-18.0); MCH 29.4 (27-36); MCHC 33.2 g/dl (30-36); MCV 88.7 fl (81-99); PLATELET COUNT 193 K/uL (140-440); RBC 3.79 M/ul (4.3-5.7); RDW 15.2 (10.5-15.0)
[2024-11-08 05:49] LABS: ALBUMIN 2.7 g/dL (3.4-5.0); ALBUMIN/GLOBULIN RATIO 0.61 (1.1-2.4); ANION GAP 12.9 (7-21); BILIRUBIN, TOTAL 0.9 mg/dL (0.2-1.0); BUN/CREATININE RATIO 19.54 (6.0-28.6); CALCIUM 8.3 mg/dL (8.5-10.1); CREATININE, SERUM 0.87 mg/dL (0.55-1.02); POTASSIUM 3.9 mmol/L (3.5-5.1); PROTEIN, TOTAL 7.1 g/dL (6.4-8.2)
[2024-11-08 05:59] LABS: BASOPHILS, MANUAL DIFF 1; LYMPHOCYTES, MANUAL DIFF 1; NEUTROPHILS, MANUAL DIFF 98
[2024-11-08] MEDS ORDERED: methylPREDNISolone SOD SUCC 125 MG/2 ML VIAL IV SCH (06:00)
--- NOTE | 2024-11-08 06:19 | NUR ---
Pt rested some during the remainder of the shift. Tele reading NSR. Purewick in place, some output noted. VSS. Safety precautions maintained. Call light within reach. Will continue to monitor.
--- NOTE | 2024-11-08 07:30 | NUR ---
RECEIVED REPORT FROM NIGHT RN. PT SLEEPING AT THIS TIME, DID NO AWAKEN. RESPIRATIONS UNLABORED, CALL LIGHT WITHIN REACH. ALL PT CARE NEEDS MET AT THIS TIME, WILL ALLOW PT TO REST.
[2024-11-08] MEDS ORDERED: ALBUTEROL/IPRATROPIUM 3 ML NEB INH SCH ×2 (08:00→12:00)
[2024-11-08] MEDS ORDERED: CEFTRIAXONE SODIUM 2 GM VIAL ONE (08:34)
[2024-11-08] MEDS ORDERED: METOPROLOL SUCCINATE 50 MG TABCR PO SCH (09:00)
[2024-11-08] MEDS ORDERED: CEFTRIAXONE SODIUM 2 GM in SODIUM CHLORIDE 0.9% 100 ML IV SCH (09:00)
[2024-11-08] MEDS ORDERED: FUROSEMIDE 20 MG TAB PO SCH (09:00)
--- NOTE | 2024-11-08 09:02 | NUR ---
ALERT AND ORIENTED IN RECLINER, EATING BREAKFAST. LIVES ALONE IN SINGLE STORY HOME. HAS WALKER AND CANE SHE USES WHEN SHE IS AMBULATING DISTANCES. STATES SHE HAS NO OTHER DME. SHE DRIVES AT [facility] AND DENIES ANY DIFFICULTY PAYING UTILTIES OR FOR FOOD. DOES SOMETIMES HAVE DIFFICULTY PAYING FOR MEDS BUT NOT ALL THE TIME. DENIES ANY KNOWN CM NEEDS AT THIS TIME.
--- NOTE | 2024-11-08 09:07 | NUR ---
Board has been updated and call light has been placed within reach. No request from patient
--- NOTE | 2024-11-08 09:08 | NUR ---
PT RESTING IN BED WITH TRAY SETUP, ASSISTED PT UP FROM BED TO BATHROOM AND INTO CHAIR FOR BREAKFAST. PT WAS UNSTEADY WITH AMBULATION, WILL PROVIDE WALKER WHILE SHE IS HERE. PUREWICK REMOVED AT THIS TIME, PT ABLE TO AMBULATE DURING DAY TO BATHROOM FOR MOBILITY. IV ABX INFUSING ORDERED - SEE NOV. PT C/O 12/14 HEADACHE, WHICH SHE STATES STARTED IN THE EMERGENCY ROOM. PRN TYLENOL PROVIDED - SEE MAR. PT STATES SHE IS EXCORIATED TO PERIAREA AND IT IS BURNING WITH URINATION, FEELS IT ISNT UTI BURNING BUT MORE WHERE SHE IS RED, WILL CONTINUE BARRIER CREAM TO GROIN TODAY. SECURITY CHIEF MUSEUM INFORMED PT WOULD LIKE SHOWER THIS MORNING. ALL PT CARE NEEDS MET AT THIS TIME, SITTING UP IN CHAIR EATING BREAKFAST. CALL LIGHT WITHIN REACH AT THIS TIME.
--- NOTE | 2024-11-08 09:16 | NUR ---
PT WAS UP IN CHAIR, CURRENTLY ON RA AT THIS TIME SATS 91%. PT DENIES OXYGEN USE AT HOME. REMAINS ON RA WHILE EATING BREAKFAST. RT ARRIVED AND WILL RETURN LATER TO ASSESS/NEBS AND WILL RE-EVALUATE OXYGEN AT THAT TIME
--- NOTE | 2024-11-08 10:52 | NUR ---
PT NOT AVAILABLE FOR VISIT. PROVIDED PRAYER.
[2024-11-08] MEDS ORDERED: LOPERAMIDE HCL 2 MG CAP PO PRN (13:45)
[2024-11-08] MEDS ORDERED: ZINC OXIDE/PETROLATUM, YELLOW 71 GM TUBE TOP PRN (14:30)
--- NOTE | 2024-11-08 14:36 | NUR ---
PT DONE WITH SHOWER, STUDENT RN INFORMED THIS RN THAT PT HAVING SOME BLEEDING IN RECTUM, ON EVALUATION THERE IS A SMALL CUT AT THE TOP OF BUTT CRACK, CLEANED WITH WASH CLOTHE AND CRITIC AID APPLIED. INFORMED, NO ACTUAL RECTAL BLEEDING JUST A CRACK. CRITIC AID APPLIED TO BILATERAL GROIN/LOWER PANNUS FOR EXCORIATION. NO OTHER NEEDS AT THIS TIME. PT PULL-UPS ON AT THIS TIME. NO OTHER NEEDS AT THIS TIME.
[2024-11-08] MEDS ORDERED: WARFARIN SOD 2 MG TAB PO SCH (16:00)
[2024-11-08] MEDS ORDERED: WARFARIN PER PHARMACY PROTOCOL PO SCH (16:00)
--- NOTE | 2024-11-08 16:09 | NUR ---
PT RESTING, SITTING UP IN CHAIR PLAYING ON CELL PHONE, DENIES PAIN. REQUESTING HOT COFFEE, WHICH WAS PROVIDED TO PATIENT. DENIES ANY FURTHER NEEDS. CALL LIGHT WITHIN REACH.
[2024-11-08] MEDS ORDERED: WARFARIN SOD 2 MG TAB PO ONE (17:00)
--- NOTE | 2024-11-08 17:01 | NUR ---
PER RT, DUONEB GIVEN BY THIS RN. PT LS CLEAR THROUGHOUT, PT ASKED IF SHE WOULD LIKE BREATHING TREATMENT AND STATES SHE DOES FEEL IT WOULD HELP HER AT THIS TIME. PT SITTING UP IN CHAIR, ALL CARE NEEDS MET AT THIS TIME.
[2024-11-08] MEDS ORDERED: POTASSIUM CHLO10 ME1 PO (17:02)
[2024-11-08] MEDS ORDERED: FUROSEMIDE20 MG PO (17:02)
[2024-11-08] MEDS ORDERED: LOPERAMIDE2 MG PO (17:03)
--- NOTE | 2024-11-08 17:06 | NUR ---
medications reconciled using pharmacy records and patient interview. Patient takes her warfarin in the morning
--- NOTE | 2024-11-08 18:43 | NUR ---
PT ASSISTED OUT OF BATHROOM, STEADY ON HER FEET THIS EVENING. OFFERED TO HELP GET IN BED, PT INSISTED ON SITTING UP IN CHAIR FOR A WHILE LONGER. VS STABLE. DENIES PAIN. CALL LIGHT WITHIN REACH, NO NEEDS AT THIS TIME.
--- NOTE | 2024-11-08 19:40 | NUR ---
RECEIVED REPORT FROM JOANIE VALDES. PT UP IN RECLINER. DENIES NEEDS.
--- NOTE | 2024-11-08 20:45 | NUR ---
PT UP IN RECLINER VISITING W/ DTR. VSS. DENIES PAIN. LSC. ON RA. HRR. BTA, REPORTS BM X [address]EF IN PL[address] FOR DRIBBLING. SL TO LH & RH WNL. LLE REDDENED, HOT AND EDEMATOUS. REDNESS OUTSIDE OF MARKED BORDERS, NEW BORDERS MARKED AND DATED. LLE 2+ EDEMA. PT ASSISTED TO BR BY RULING MACHINE OPERATOR, SBA. VOIDS WNL. GROIN RASH CLEANSED W/ SOAP AND WATER BY PT. SMALL BLEEDING FISSURE TO BUTT CRACK, CLEANSED W/ SOAP AND WATER. ASSISTED BACK TO BED. CALL LIGHT WITHIN REACH.
[2024-11-08] MEDS ORDERED: methylPREDNISolone SOD SUCC 40 MG/ML VIAL IV SCH (21:00)
--- NOTE | 2024-11-08 22:00 | NUR ---
PT ASLEEP, APPEARS COMFORTABLE.
--- NOTE | 2024-11-08 23:08 | NUR ---
SLEEPING SOUNDLY. APPEARS COMFORTABLE.
--- NOTE | 2024-11-08 23:27 | NUR ---
CALL LIGHT ANSWERED. PT NEEDED TO USE BATHROOM. HUSBANDRY TECHNICIAN SBA TO BATHROOM. PT VOIDED AND ASSISTED BACK TO BED. OUTPUT MEASURED. PT STATES NO FURTHER NEEDS AT THIS TIME. CALL LIGHT WITHIN REACH.
[2024-11-09] VITALS (12 sets, daily range): BP systolic 114–136; BP diastolic 53–79
--- NOTE | 2024-11-09 01:32 | NUR ---
PT SLEEPING SOUNDLY. APPEARS COMFORTABLE.
--- NOTE | 2024-11-09 02:12 | NUR ---
INVESTIGATOR UTILITY BILL COMPLAINTS OBTAINED VITALS AND I&O. PT STATES NO NEEDS AT THIS TIME. CALL LIGHT WITHIN REACH.
--- NOTE | 2024-11-09 03:37 | NUR ---
PT SLEEPING SOUNDLY. APPEARS COMFORTABLE.
[2024-11-09 05:41] LABS: BASOPHILS 0.3 % (0-2); HEMATOCRIT 29.7 % (35.0-50.0); LYMPHOCYTES 1.6 % (24-44); MCH 29.8 (27-36); MCHC 33.7 g/dl (30-36); MCV 88.4 fl (81-99); MONOCYTES 1.1 % (0-12); PLATELET COUNT 173 K/uL (140-440); RBC 3.35 M/ul (4.3-5.7); RDW 15.3 (10.5-15.0)
[2024-11-09 05:56] LABS: ANION GAP 9.1 (7-21); BUN/CREATININE RATIO 23.25 (6.0-28.6); CALCIUM 8.9 mg/dL (8.5-10.1); CREATININE, SERUM 0.86 mg/dL (0.55-1.02); MAGNESIUM 1.9 mg/dL (1.8-2.4); POTASSIUM 4.1 mmol/L (3.5-5.1)
--- NOTE | 2024-11-09 06:00 | NUR ---
CALL LIGHT ANSWERED. PT NEEDED TO USE BATHROOM. NURSE REVIEWER SBA TO BATHROOM. PT VOIDED AND ASSISTED BACK TO BED. VITALS AND I&O OBTAINED AND DOCUMENTED. PT STATES NO FURTHER NEEDS AT THIS TIME. CALL LIGHT WITHIN REACH.
[2024-11-09 06:04] LABS: INR 2.67 (0.80-1.30); PROTIME 28.6 Sec (11.2-14.2)
--- NOTE | 2024-11-09 06:37 | NUR ---
PT RESTING IN BED COMFORTABLY. PHOTOS TAKEN OF LLE CELLULITIS AND PLACED IN CHART. REDNESS APPEARS IMPROVED.
--- NOTE | 2024-11-09 07:27 | NUR ---
REPORT RECEIVED FROM JOANIE GOODMAN. PT RESTING IN BED, RR EVEN AND UNLABORED, CALL LIGHT IN REACH.
[2024-11-09] MEDS ORDERED: CEFTRIAXONE SODIUM 1 GM VIAL IV ONE (07:51)
[2024-11-09] MEDS ORDERED: PANTOPRAZOLE SODIUM 40 MG TABEC PO SCH (09:00)
[2024-11-09] MEDS ORDERED: CEFTRIAXONE SODIUM 1 GM in SODIUM CHLORIDE 0.9% 100 ML IV SCH (09:00)
[2024-11-09] MEDS ORDERED: METOPROLOL SUCCINATE 50 MG TABCR PO SCH (09:00)
[2024-11-09] MEDS ORDERED: WARFARIN SOD HOLD 1 EA PO ONE (09:15)
--- NOTE | 2024-11-09 09:51 | NUR ---
CALLED ENRIQUE AT [facility] WAITING TO HEAR BACK ABOUT HOW MUCH A COPAY WOULD BE FOR PUL/DUO X2 A DAY WITH MEDICARE.
--- NOTE | 2024-11-09 10:23 | NUR ---
UR CLINICAL REVIEW: 2MN RAVI, MEETS INPT FOR CELLULITIS, COPD EXACERBATION. WBC 26.2/16.4, IV ANTIBIOTICS NEEDED, BLOOD CULTURES PENDING, IV SOLU-MEDROL OXYGEN 2L INITIALLY, DOWN TO ROOM AIR. MEDICARE INPT 11/08/2024 @ 1249 ORDER MATCHES REG NO AUTH REQUIRED PER MEDICARE RULES PLAN TO DC TO HOME WHEN MEDICALLY STABLE
--- NOTE | 2024-11-09 10:25 | NUR ---
INTO LET PATIENT KNOW THE PUL/DUO X2 A DAY WOULD BE ABOUT 35 DOLLARS A MONTH COPAY. PATIENT UNDERSTANDING VERABLIZING "THAT IS MUCH BETTER THAN I THOUGHT." PATIENT WILL CALL DAUGHTER RAYMOND AT TIME OF DISCHARGE FOR RIDE. NO OTHER CM NEEDS AT THIS TIME.
--- NOTE | 2024-11-09 10:35 | NUR ---
ASSESSMENT COMPLETE. PT UP IN RECLINER WITH LLE ELEVATED AND ON ONE PILLOW, WATCHING TELEVISION. BOTH IVs FLUSH WNL. PT HAS NO COMPLAINTS OF PAIN OR DISCOMFORT. REDNESS TO LLE IS WARM TO THE TOUCH, REDNESS HAS DECREASED FROM LINE DRAWN YESTERDAY/OVERNIGHT. NEW OUTLINE DRAWN TO LLE REA AND CALF WELL A PATCH BEHIND THE PTs L KNEE. PT EXPRESSES CONCERNS REGARDING HER BOWEL MOVEMENTS AND STATES SHE MAY HAVE LOOSE STOOLS SOON AND NEED HER MEDICATION. PT EDUCATED COMMUNITY WORKER LIGHT AND TOLD TO INFORM THIS RN WHEN SHE IS READY FOR THAT MEDICATION. PT VERBALIZES UNDERSTANDING. PT REQUESTING COFFEE - PROVIDED. PT HAS NO OTHER REQUESTS AT THIS TIME, CALL LIGHT IN REACH.
--- NOTE | 2024-11-09 10:54 | NUR ---
TALKED WITH PATIENT ABOUT [employer]. STATES SHE MAKES TO MUCH MONEY AND HAS CHECKED IN WITH IT.
--- NOTE | 2024-11-09 11:28 | NUR ---
PT NOT AVAILABLE FOR VISIT. PROVIDED PRAYER.
[2024-11-09] MEDS ORDERED: PHARMACY RENAL DOSE ADJUSTMENT 1 DOSE MISC PO SCH (12:00)
--- NOTE | 2024-11-09 12:30 | NUR ---
OCCUPATIONAL THERAPY PRESENT IN ROOM, PT UP IN RECLINER EATING LUNCH AT THIS TIME, NO REQUESTS, CALL LIGHT IN REACH.
--- NOTE | 2024-11-09 14:30 | NUR ---
PT RESTING IN RECLINER WITH BLE ELEVATED, WATCHING TELEVISION. BOTH IVs FLUSH WNL. PTs LLE REDNESS HAS RECEDED ABOUT AN INCH FROM OUTLINE DRAWN THIS AM, SKIN IS WARM TO TOUCH BUT NO LONGER HOT. PT ALSO REPORTING HER LEG LOOKS MUCH BETTER. PT HAS NO PAIN OR DISCOMFORT. REDNESS BEHIND L KNEE OUTLINE THIS AM IS UNCHANGED, STILL HOT TO TOUCH. PT REQUESTING COFFEE - PROVIDED. NO OTHER REQUESTS, CALL LIGHT IN REACH.
--- NOTE | 2024-11-09 17:55 | NUR ---
PT AMBULATES WITH SBA ONLY FROM RECLINER TO RESTROOM. PT REPORTS SHE MAY HAVE A BOWEL MOVEMENT, PT EDUCATED ON USING CALL CORD, PT VERBALIZES UNDERSTANDING OF USE, PRIVACY PROVIDED AT THIS TIME. SUPPER TRAY REMOVED.
--- NOTE | 2024-11-09 18:16 | NUR ---
MD IN TO ASSESS PT. ALL QUESTIONS AND CONCERNS ANSWERED AND ADDRESSED. PT UP IN RECLINER WITH BLE ELEVATED. MD STATES PLAN OF CARE CHANGE. NO REQUESTS FROM PT AT THIS TIME, CALL LIGHT IN REACH.
[2024-11-09] MEDS ORDERED: DAPTOmycin 500 MG/10 ML VIAL IV SCH (18:30)
--- NOTE | 2024-11-09 19:53 | NUR ---
RECEIVED REPORT FROM JOANIE JAUREGUI. PT UP IN RECLINER. DENIES NEEDS OR CONCERNS.
[2024-11-09] MEDS ORDERED: ALBUTEROL/IPRATROPIUM 3 ML NEB INH SCH (20:00)
--- NOTE | 2024-11-09 20:15 | NUR ---
HEDY IS ON ROOM AIR SITTING IN THE CHAIR
[2024-11-09] MEDS ORDERED: CEFEPIME HCL 2 GM VIAL ONE (20:56)
--- NOTE | 2024-11-09 21:00 | NUR ---
PT UP IN CHAIR. CALLS APPROPRIATELY. DENIES PAIN. LSC. HRR. BT HYPO. LBM TODAY. WEARS DISPOSIBLE BRIEF FOR DRIBBLING. SL LH AND RH WNL. LLE CELLULITIS-WARM, REDDENED AND EDEMATOUS. REDNESS WITHIN MARKED BORDERS. ASSISTED PT TO BR SBA, PT DID OWN HYGIENE TO GROIN RASH AND APPLIED BARRIER CREAM. VOIDS WNL. ASSISTED BACK TO BED. LLE ELEVATED ON PILLOWS. CALL LIGHT WITHIN REACH.
--- NOTE | 2024-11-09 21:08 | EKG ---
[facility] [address] [place] [address] Signed Sinus tachy[address] Nonspecific ST abnormality Abnormal ECG When compared with ECG of 04-MAR-2024 16:32, Nonspecific T wave abnormality, improved in Anterior leads Confirmed by Saige Weber MD ([id number]) on 11/09/2024 9:08:06 PM Electronically Signed By: SAIGE WEBER MD 11/09/[id number] PATIENT NAME: HEDY MORA Electrocardiogram DATE OF : 50 PHYSICIAN: SAIGE WEBER MD REPORT #: [id number] REPORT IS CONFIDENTIAL AND NOT TO BE RELEASED WITHOUT AUTHORIZATION
[2024-11-09] MEDS ORDERED: CEFEPIME HCL 2 GM in SODIUM CHLORIDE 0.9% 100 ML IV SCH (22:00)
[2024-11-09] MEDS ORDERED: CEFEPIME HCL 2 GM in DEXTROSE 5% 100 ML IV SCH (22:00)
[2024-11-09] MEDS ORDERED: diphenhydrAMINE HCL 50 MG/ML VIAL IV ONE (22:30)
--- NOTE | 2024-11-09 22:30 | NUR ---
PT CALLED TO REPORT LIPS AND TONGUE FEEL FUNNY AFTER IV ATB STARTED. NO OBVIOUS SWELLING TO TONGUE OR LIPS. IV ATB STOPPED. DR. DANIELLE NOTIFIED-STOP ATB AND ADMINISTER ONE TIME DOSE OF IV BENADRYL.
--- NOTE | 2024-11-09 23:41 | NUR ---
PT REPORTS NO FURTHER ITCHING OR SWELLING FEELINGS TO LIPS OR TONGUE. NO OTHER NEEDS AT THIS TIME.
[2024-11-10] VITALS (10 sets, daily range): BP systolic 114–133; BP diastolic 41–59
--- NOTE | 2024-11-10 02:16 | NUR ---
PT AWAKE, SLEEPING BETWEEN CARE. DENIES NEEDS.
--- NOTE | 2024-11-10 03:02 | NUR ---
ASSISTED PT TO BR, SBA. VOIDS WNL. LLE REDNESS UNCHANGED.
--- NOTE | 2024-11-10 04:53 | NUR ---
PT ASLEEP, APPEARS COMFORTABLE.
[2024-11-10 05:51] LABS: BASOPHILS 0.1 % (0-2); HEMATOCRIT 28.8 % (35.0-50.0); HEMOGLOBIN 9.7 g/dL (12.0-18.0); LYMPHOCYTES 5.4 % (24-44); MCH 29.8 (27-36); MCHC 33.7 g/dl (30-36); MCV 88.5 fl (81-99); NEUTROPHILS 90.5 % (39-80); PLATELET COUNT 169 K/uL (140-440); RBC 3.26 M/ul (4.3-5.7); RDW 15.5 (10.5-15.0)
[2024-11-10 06:01] LABS: ANION GAP 11.1 (7-21); BUN/CREATININE RATIO 30.23 (6.0-28.6); CALCIUM 8.9 mg/dL (8.5-10.1); CREATININE, SERUM 0.86 mg/dL (0.55-1.02); POTASSIUM 4.1 mmol/L (3.5-5.1)
[2024-11-10 06:05] LABS: INR 2.22 (0.80-1.30); PROTIME 24.7 Sec (11.2-14.2)
--- NOTE | 2024-11-10 06:12 | NUR ---
TRAVELING STOREKEEPER OBTAINED VITALS AND I&O. PT STATES NO NEEDS AT THIS TIME. CALL LIGHT WITHIN REACH.
--- NOTE | 2024-11-10 06:28 | NUR ---
PT AWAKE. LLE CELLULITIS IMPROVED, DECREASED REDNESS AND WITHIN MARKED BORDERS. REQUESTS NEB TX-WILL NOTIFY RT.
--- NOTE | 2024-11-10 07:07 | NUR ---
REPORT RECEIVED FROM JOANIE GOODMAN. PT RESTING IN BED AWAKE AND ALERT, WATCHING TEEVISION. NO REQUESTS, CALL LIGHT IN REACH.
[2024-11-10] MEDS ORDERED: PIPERACILLIN/TAZOBACTAM 3.375 GM in SODIUM CHLORIDE 0.9% 100 ML IV SCH (09:00)
[2024-11-10] MEDS ORDERED: WARFARIN SOD 2 MG TAB PO SCH (09:00)
[2024-11-10] MEDS ORDERED: predniSONE 20 MG TAB PO SCH (09:00)
[2024-11-10] MEDS ORDERED: PIPERACILLIN/TAZOBACTAM 3.375 GM VIAL ONE ×3 (09:05→17:24)
--- NOTE | 2024-11-10 10:26 | NUR ---
IMAGING - ECHO - CURRENTLY IN WITH PT. PT DENIES ANY PAIN, DISCOMFORT, ITCHING, RASH, OR TONGUE SWELLING AT THIS TIME. NEW ABX STARTED 920 BY STUDENT NURSE ARJUN. PT HAS NO REQUESTS, IMAGING REMAINS IN ROOM.
--- NOTE | 2024-11-10 11:12 | NUR ---
IMAGING FINISHES WITH PT. ASSESSMENT COMPLETE. PTs LLE CELLULITIES MARKEDLY IMPROVED FROM YESTERDAY. REDNESS HAS DEEPENED WITH SOME PURPLE PATCHES, BUT THE AREA IS CONTAINED TO L REA ONLY AT THIS TIME. MILD WARMTH NOTED, NOT HOT, PT REPORTS MILD TENDERNESS THAT IS MUCH LESS THAN YESTERDAY ALSO. NO REDNESS/HEAT NOTED TO PTs THIGH, CALF, OR BACK OF KNEE. PT REPORTS THAT SHE FEELS AN INCREASE IN HER COUGHING TODAY, THOUGH HAS NO SOB, TIGHTNESS, OR DISCOMFORT. LUNG SOUNDS CLEAR IN BUL AND CLEAR TO RLL. FINE CRACKLES NOTED TO LLL. PT ENCORAGED TO PRACTICE DEEP BREATHING TODAY AND TO AMBULATE IN HALLWAYS. PT AGREEABLE, REPORTS THAT SHE FEELS THIS WILL BE VERY HELPFUL FOR HER AND FEEL GOOD. PT ASSISTED INTO A FRESH GOWN, AMBULATES WITH SUPERVISION ONLY TO RECLINER. STUDENT NURSE ARJUN FARRELL PTs HAIR. FRESH COFFEE PROVIDED BY THIS RN. PT IN RECLINER WITH BLE ELEVATED, NO OTHER REQUESTS AT THIS TIME. CALL LIGHT IN REACH.
--- NOTE | 2024-11-10 12:15 | NUR ---
INTO SEE PATIENT. IMM LETTER COMPLETED AND COPY GIVEN. PATIENT RESTING IN CHAIR. DENIES ANY NEEDS FROM CM AT THIS TIME.
--- NOTE | 2024-11-10 13:45 | NUR ---
PT UP AND AMBULATING IN HALLS WITH PHYSICAL THERAPY AT THIS TIME.
--- NOTE | 2024-11-10 15:27 | NUR ---
PT NOT AVAILABLE FOR VISIT. PROVIDED PRAYER.
--- NOTE | 2024-11-10 16:59 | NUR ---
PT RESTING IN RECLINER WATCHING TELEVISION. REPORTS HER BOWEL MOVEMENTS HAVE BEEN MORE FORMED HERE AND SHE IS VERY PLEASED WITH THIS. BOTH IVs FLUSH WNL. LLE REDNESS CONTINUES TO DECREASE FROM THIS MORNING. MILD TENDERNESS TO PALPATION ON REA. REDNESS WITH PURPLE PATCHES TO REA UNCHANGED FROM APPEARANCE THIS MORNING, BUT WITH SMALLER AREA. GENERALIZED SWELLING NOTED, PT REPORTS SHE HAS BEEN WALKING A LOT MORE TODAY AND HAS BEEN "NAUGHTY" AND KEEPING HER FEET DOWN WHILE IN RECLINER. OFFERED TWO PILLOWS UNDER LLE TO ELEVATE LEG, PT AGREEABLE. PT IN GOOD SPIRITS STATES "I FEEL REALLY GOOD TODAY". NO PAIN, NO DISCOMFORT. PT HAS NO REQUESTS AT THIS TIME, CALL LIGHT IN REACH.
--- NOTE | 2024-11-10 17:40 | NUR ---
MEDICATION ADMINISTERED, SEE MAR. PT SITTING UP IN RECLINER EATING SUPPER. LLE REMAINS ELEVATED ON TWO PILLOWS. NO REQUESTS AT THIS TIME, CALL LIGHT IN REACH.
--- NOTE | 2024-11-10 19:34 | NUR ---
BATHROOM. CALL LIGHT ANSWERED. PT BACK TO CHAIR. OUTPUT MEASURED. PT STATES NO FURTHER NEEDS AT THIS TIME. CALL LIGHT WITHIN REACH.
--- NOTE | 2024-11-10 19:35 | NUR ---
Awake, SBA to brp, back to chair, tolerating well
--- NOTE | 2024-11-10 19:44 | NUR ---
HEDY IS SITTING IN THE CHAIR ON ROOM AIR TALKING TO HER DAUGHTER, RAYMOND. HEDY REQUESTED THAT THE DUONEB BE CHANGED TO ALBUTEROL ONLY.
[2024-11-10] MEDS ORDERED: ALBUTEROL SULFATE 0.083% 3 ML VIAL INH SCH (20:00)
--- NOTE | 2024-11-10 20:42 | NUR ---
Awake, on room air, up in chair, denies c/o CP or SOB. 2SL patent.
--- NOTE | 2024-11-10 21:18 | NUR ---
CALL LIGHT ANSWERED. PT READY TO GET IN BED. DIVINE HEALER SBA FROM CHAIR TO BED. PT STATES NO FURTHER NEEDS AT THIS TIME. CALL LIGHT WITHIN REACH.
[2024-11-11] VITALS (10 sets, daily range): BP systolic 124–143; BP diastolic 48–68
--- NOTE | 2024-11-11 00:29 | NUR ---
resting, eyes closed, onroom air, no s/sx distress, legs elevated w pillows
[2024-11-11] MEDS ORDERED: PIPERACILLIN/TAZOBACTAM 3.375 GM VIAL ONE ×2 (00:55→09:11)
--- NOTE | 2024-11-11 03:10 | NUR ---
HEDY IS AWAKE WATCHING TV ON ROOM AIR. HOB IS ELEVATED.
[2024-11-11] MEDS ORDERED: INHALER, ASSIST DEVICES 1 EACH SPACER MISC ONE (03:30)
--- NOTE | 2024-11-11 04:30 | NUR ---
CALL LIGHT ANSWERED. PT NEEDED TO USE BATHROOM. TORPEDO MAN SBA TO BATHROOM. PT VOIDED AND ASSISTED BACK TO BED. VITALS AND I&O OBTAINED AND DOCUMENTED. PT STATES NO FURTHER NEEDS AT THIS TIME. CALL LIGHT WITHIN REACH.
[2024-11-11 05:32] LABS: HEMATOCRIT 29.5 % (35.0-50.0); LYMPHOCYTES 13.3 % (24-44); MCH 29.9 (27-36); MCV 87.9 fl (81-99); NEUTROPHILS 81.7 % (39-80); PLATELET COUNT 193 K/uL (140-440); RBC 3.36 M/ul (4.3-5.7); RDW 15.7 (10.5-15.0)
[2024-11-11 05:36] LABS: INR 2.25 (0.80-1.30)
[2024-11-11 05:37] LABS: BUN/CREATININE RATIO 27.27 (6.0-28.6); CALCIUM 8.8 mg/dL (8.5-10.1); CREATININE, SERUM 0.88 mg/dL (0.55-1.02); MAGNESIUM 1.8 mg/dL (1.8-2.4)
--- NOTE | 2024-11-11 07:15 | NUR ---
REPORT RECEIVED FROM JOANIE QUILES. PT WAKES WHEN THIS RN ENTERS BUT REPORTS SHE IS GOING TO SLEEP SOME MORE. NO REQUESTS, CALL LIGHT IN REACH.
--- NOTE | 2024-11-11 07:45 | NUR ---
PT IS UP IN RECLINER WITH BLE ELEVATED, WATCHING TELEVISION. PT REPORTS SHE IS BEGINNING TO FEEL MILD CHEST TIGHTNESS AND WOULD LIKE HER BREATHING TREATMENT. JUDY IN RESPIRATORY THERAPY NOTIFIED. PT HAS NO OTHER REQUESTS, CALL LIGHT IN REACH.
--- NOTE | 2024-11-11 08:34 | NUR ---
PT UP IN RECLINER WITH KERVIN COX WORKING ON BREAKFAST. REPORTS THE BREATHING TREATMENT SHE RECEIVED HELPED HER FEEL MUCH BETTER AND SHE "COUGHED UP SOMETHING YELLOW" WHICH FELT GOOD TO DO. PT IS REQUESTING A SECOND COFFEE - PROVIDED. NO OTHER REQUESTS. CALL LIGHT IN REACH.
[2024-11-11] MEDS ORDERED: WARFARIN SOD 2 MG TAB PO SCH (09:00)
--- NOTE | 2024-11-11 10:02 | NUR ---
MEDICATION ADMINISTERED, SEE MAR. ASSESSMENT COMPLETE. PT SITTING UP IN RECLINER WITH BLE ELEVATED. LUNG SOUNDS CLEAR TO BUL, DIMINISHED IN BLL. PTs LLE CELLULITIS HAS REDNESS TO REA ONLY, NO HEAT, PAIN, OR DISCOMFORT NOTED. NO NUMBNESS OR TINGLING TO LLE, NO OPEN WOUNDS, NO DRAINAGE. PT REPORTS THAT SHE IS FEELING VERY GOOD TODAY. PT UNDERSTANDS HER MEDICAL TREATMENT, AGREEABLE TO PLAN OF CARE. PTs IV IN L WRIST IS LEAKING. THIS RN ATTEMPTED TO PLACE NEW IV WITHOUT SUCCESS. JOANIE MILES NOTIFIED AND JOANIE MILES STARTS NEW IV IN PTs R HAND. VASCULAR ACCESS CHARTED. IV ABX STARTED AT THIS TIME. PT HAS NO PAIN OR DISCOMFORT, REMAINS IN RECLINER WITH BLE ELEVATED WATCHING TELEVISION. NO REQUESTS, CALL LIGHT IN REACH.
--- NOTE | 2024-11-11 12:05 | NUR ---
PT UP IN RECLINER EATING LUNCH. PT STATES "I COULD BE A LITTLE WARMER". THERMOSTAT ADJUSTED, DENIES WARM BLANKET. NO REQUESTS. CALL LIGHT IN REACH.
[2024-11-11] MEDS ORDERED: CEFTRIAXONE SODIUM 2 GM in SODIUM CHLORIDE 0.9% 100 ML IV SCH (12:28)
--- NOTE | 2024-11-11 13:22 | NUR ---
PT UP IN RECLINER ON PHONE. PT REQUESTING EDUCATION REGARDING PERSONAL HYGIENE, EDUCATION AND MULTIPLE EXAMPLES PROVIDED. PT VERBALIZES UNDERSTANDING AND AGREEABLE TO THOUGHTS AND PERSONAL HYGIENE IDEAS. NO OTHER REQUESTS AT THIS TIME, CALL LIGHT IN REACH.
[2024-11-11] MEDS ORDERED: CEFTRIAXONE SODIUM 2 GM VIAL ONE (14:18)
--- NOTE | 2024-11-11 14:59 | NUR ---
PT CURRENTLY SHOWERING WITH GEOFF FULTON.
--- NOTE | 2024-11-11 15:00 | NUR ---
AFTER I DID HER VITALS AND I AND O. WRAPPED HER IV. PATIENT WENT IN TO USE THE BATHROOM. THAN GOT IN THE SHOWER. PATIENT WASHED HER WHOLE BODY AND WASHED HER HAIR. NEW GOWN, SOCKS AND UNDERWEAR. PATIENT IS SITTING UP IN HER CHAIR WATCHING TV.
--- NOTE | 2024-11-11 15:39 | NUR ---
PT RESTING IN RECLINER WITH BLE ELEVATED FOLLOWING SHOWER WITH GEOFF KIRSTIN. IV ABX STARTED, SEE MAR. IV TO R HAND FLUSHES WNL, PT REPORTS NO PAIN AT SITE, NO REDNESS OR WARMTH NOTED. PTs LLE HAS REDNESS WITH PURPLE PATCHES TO REA, UNCHANGED FROM THIS AM. NO WARMTH NOTED, MILDLY TENDER TO PALPATION. BILAT PEDAL PULSES 2+ AND STRONG, PT DENIES NUMBNESS OR TINGLING. PT EXPRESSES CONCERN THAT SHE BELIEVES SHE MAY HAVE SEEN A RED SPOT TO THE BACK OF HER R THIGH. BRUISE NOTED TO BACK OF R THIGH, NO REDNESS OR HEAT NOTED. PT REASSURED, VERBALIZES UNDERSTANDING. PT HAS NO REPORTS OF PAIN OR DISCOMFORT. COFFEE AND FRESH WATER PROVIDED. NO FURTHER REQUESTS, CALL LIGHT IN REACH.
--- NOTE | 2024-11-11 17:28 | NUR ---
PT AMBULATES TO RESTROOM WITH SUPERVISION ONLY. VOIDS, PROVIDES HER OWN RIGO-CARE, WASHES HER HANDS, AND AMBULATES BACK TO RECLINER. DINNER TRAY HAS ARRIVED. PT HAS NO OTHER REQUESTS. CALL LIGHT IN REACH. DISCUSSED WITH CHARGE NURSE JASMINE MAKING PT INDEPENDENT IN HER ROOM SHE IS STEADY, ALERT AND ORIENTED, AND PROVIDES HER OWN CARES. JASMINE AGREES. PT INFORMED AND AGREEABLE.
--- NOTE | 2024-11-11 18:48 | NUR ---
PT UP IN RECLINER WATCHING TELEVISION AND ON HER CELL PHONE. NO REQUESTS, CALL LIGHT IN REACH.
--- NOTE | 2024-11-11 19:25 | NUR ---
HEDY IS AWAKE ON ROOM AIR, SITTING IN THE CHAIR WATCHING TV.
--- NOTE | 2024-11-11 20:41 | NUR ---
pT UP TO brP, INDEPENDENT IN ROOM, VOIDED, BACK TO CHAIR, LEGS ELEVATED. COOPERATIVE WITH VITALS AND ASSESSMENTS, NO C/O PAIN. ON ROOM AIR, CLEAR LUNGS BILAT, ABD SOFT, LBM 11/10, VOIDING CLEAR YELLOW QA URINE. IV RH PATENT. BRUISING OVER OLD IV SITED NOTED L HAND. EDEMA TO LE PRESENT, DECREASED REDNESS NOTED L LEG DO LOWER LACF SPOTTED DOMINIQUE LATERALLY AND CLOSER TO ANKLES NOTED. AT THIS TIME. TOLERATING LIQUIDS WELL, NO C/O PAIN OR N/V, ALERT ORIENTED PLEASANT AND COOPERATIVE
--- NOTE | 2024-11-11 23:46 | NUR ---
RESTING, EYES CLOSED, IN BED, ROOM AIR. LE ELEVATED
[2024-11-12] VITALS (7 sets, daily range): BP systolic 123–166; BP diastolic 50–69
[2024-11-12 05:28] LABS: BASOPHILS 0.1 % (0-2); EOSINOPHILS 0.1 % (0-6); HEMATOCRIT 30.4 % (35.0-50.0); HEMOGLOBIN 10.3 g/dL (12.0-18.0); LYMPHOCYTES 19.8 % (24-44); MCH 29.7 (27-36); MCHC 33.8 g/dl (30-36); MCV 87.9 fl (81-99); MONOCYTES 7.5 % (0-12); NEUTROPHILS 72.5 % (39-80); PLATELET COUNT 205 K/uL (140-440); RBC 3.46 M/ul (4.3-5.7); RDW 15.6 (10.5-15.0)
[2024-11-12 05:36] LABS: INR 2.24 (0.80-1.30); PROTIME 24.8 Sec (11.2-14.2)
[2024-11-12 05:39] LABS: CALCIUM 8.9 mg/dL (8.5-10.1); CREATININE, SERUM 0.8 mg/dL (0.55-1.02); MAGNESIUM 1.8 mg/dL (1.8-2.4)
--- NOTE | 2024-11-12 07:20 | NUR ---
GOT REPORT FROM PATTERN DRAFTER NURSE.
--- NOTE | 2024-11-12 07:28 | NUR ---
PATIENT SLEEPING, REGULAR RESPIRATIONS NOTED. BED IN LOW POSITION, CALL LIGHT WITHIN REACH.
--- NOTE | 2024-11-12 08:17 | NUR ---
PATIENT CALLED REQUESTING A BREATHING TREATMENT. THIS RN CALLED. RT DID NOT ANSWER. THIS RN NOTIFIED RT BY CHARI.
[2024-11-12] MEDS ORDERED: CEFTRIAXONE SODIUM 2 GM VIAL ONE (08:34)
[2024-11-12] MEDS ORDERED: WARFARIN SOD 2 MG TAB PO ONE (09:00)
--- NOTE | 2024-11-12 10:04 | NUR ---
PATIENT UP IN THE CHAIR PLAYING GAMES ON HER PHONE. SHE DENIES ANY NEEDS, HEADACHE HAS LEFT. RA.
--- NOTE | 2024-11-12 11:43 | NUR ---
PATIENT DOING NEB TREATMENT IN THE ROOM IN THE CHAIR. RT IN ROOM. PATIENT DENIES ANY CARES AT THIS TIME. PATIENT FULLY INDEPENDENT IN ROOM AND WAS UP WALKING THE HALLWAYS ON HER OWN.
--- NOTE | 2024-11-12 12:34 | NUR ---
patient up eating lunch, denies needs. She said she took a shower yesterday so does not want to take one today.
--- NOTE | 2024-11-12 13:53 | NUR ---
PATIENT IN THE CHAIR DOING CROSSWORD BOOKS. DENIES ANY CARES, INDEPENDENT IN THE ROOM.
--- NOTE | 2024-11-12 14:58 | NUR ---
ASKED PATIENT IF SHE WOULD LIKE TO GO FOR A RIDE IN WHEELCHAIR OUTSIDE TO GET SOME FRESH AIR. TOOK PATIENT FOR ABOUT 15 MINUTE RIDE OUTSIDE. SHE WAS VERY VERY THANKFUL. PATIENT FEELS LIKE SHE IS DOING SO MUCH BETTER TODAY. ONCE BACK PATIENT BACK TO CHAIR AND GIVEN FRESH CUP OF COFFEE.
--- NOTE | 2024-11-12 16:23 | NUR ---
RT CALLED AND PATIENT WILL NEED NEB TREATMENT BY RN. THIS NURSE IN AND NEB TREATMENT IS CURRENTLY GOING. NO QUESTIONS OR CONCERNS. PATIENT UP IN CHAIR WATCHING TV AND WAITING FOR DINNER.
--- NOTE | 2024-11-12 17:10 | NUR ---
PATIENT IS UP IN CHAIR AND DINNER WAS JUST BROUGHT TO HER.
--- NOTE | 2024-11-12 20:45 | NUR ---
HEDY IS SITTING IN THE CHAIR ON ROOM AIR WATCHING TV.
--- NOTE | 2024-11-12 21:52 | NUR ---
in recliner chair, legs elevated, on room air. lungs clear bilat. abd soft, had bm today. SL RH patent. Cellulitis L hand much improved. redness L lower mid calf midway calf and inside ankle area and foot. much improved. edema 2+ bilat LE. no c/o pain. pleasant and cooperative
--- NOTE | 2024-11-12 23:09 | NUR ---
resting, eyes closed, no s/sx distress, in bed, legs elevated in pilloes.
--- NOTE | 2024-11-13 02:20 | NUR ---
Resting, legs elevated, on room air, no s/sx distress
--- NOTE | 2024-11-13 04:25 | NUR ---
resting, eyes closed, no s/sx distress, legs elevated
[2024-11-13 05:07] VITALS: BP 139/69
[2024-11-13 05:08] VITALS: BP 139/69
[2024-11-13 06:01] LABS: BASOPHILS 0.2 % (0-2); EOSINOPHILS 0.4 % (0-6); HEMATOCRIT 32.9 % (35.0-50.0); HEMOGLOBIN 11.2 g/dL (12.0-18.0); MCH 29.8 (27-36); MCHC 34.1 g/dl (30-36); MCV 87.6 fl (81-99); MONOCYTES 9.5 % (0-12); NEUTROPHILS 64.9 % (39-80); PLATELET COUNT 206 K/uL (140-440); RBC 3.75 M/ul (4.3-5.7); RDW 15.5 (10.5-15.0)
[2024-11-13 06:13] LABS: ANION GAP 10.4 (7-21); BUN/CREATININE RATIO 27.16 (6.0-28.6); CREATININE, SERUM 0.81 mg/dL (0.55-1.02); MAGNESIUM 1.8 mg/dL (1.8-2.4); POTASSIUM 4.4 mmol/L (3.5-5.1)
[2024-11-13 06:38] LABS: INR 2.17 (0.80-1.30); PROTIME 24.2 Sec (11.2-14.2)
[2024-11-13] MEDS ORDERED: CEFTRIAXONE SODIUM 2 GM VIAL ONE (08:08)
[2024-11-13 08:54] VITALS: BP 142/64
[2024-11-13] MEDS ORDERED: WARFARIN SOD 2 MG TAB PO SCH (09:00)
--- NOTE | 2024-11-13 09:10 | NUR ---
PT SITTING UP IN CHAIR WATCHING TV. FINISHED BREAKFAST AND DENIES CONCERNS.
--- NOTE | 2024-11-13 11:00 | NUR ---
PATIENT SITTING IN CHAIR. PATIENT STATES SHE IS FEELING BETTER. DAUGHTER TO PICK HER UP AT DISCHARGE. NO FUTHER CM NEEDS AT THIS TIME.
--- NOTE | 2024-11-13 11:01 | NUR ---
PT UP IN CHAIR TALKING ON PHONE. DENIES NEEDS ATT.
[2024-11-13 13:10] VITALS: BP 123/54
[2024-11-13] MEDS ORDERED: CEFDINIR300 MG PO (13:46)
--- NOTE | 2024-11-13 13:54 | NUR ---
IMM LETTER COMPLETED AT [id number]. REVIEWED AND COPY GIVEN TO PATIENT.
== END 2024-11-13 14:27 | disposition home or self-care (01) | DRG 603 ==
LOC: ED 21:40 → MS 21:41
PROVIDERS: Family Medicine; ADMIT Student in an Organized Health Care Education/Training Program; ATTEND Student in an Organized Health Care Education/Training Program
DX: L03.116 Cellulitis of left lower limb (principal); J44.1 Chronic obstructive pulmonary disease with (acute) exacerbation; R78.81 Bacteremia; K52.1 Toxic gastroenteritis and colitis; I48.91 Unspecified atrial fibrillation; I08.1 Rheumatic disorders of both mitral and tricuspid valves; B95.1 Streptococcus, group B, as the cause of diseases classified elsewhere; Z79.01 Long term (current) use of anticoagulants; J45.909 Unspecified asthma, uncomplicated; T45.1X5A Adverse effect of antineoplastic and immunosuppressive drugs, initial encounter; Z85.048 Personal history of other malignant neoplasm of rectum, rectosigmoid junction, and anus; Z98.51 Tubal ligation status; Z88.8 Allergy status to other drugs, medicaments and biological substances; Z88.2 Allergy status to sulfonamides; Z91.048 Other nonmedicinal substance allergy status; Z92.21 Personal history of antineoplastic chemotherapy; Z92.3 Personal history of irradiation
CPT/HCPCS: 36415; 51701; 71045; 80048; 80053; 81001; 83605; 83735; 85025; 85610; 85730; 87040; 87502; 93005; 93010; 93306; 94640; 94760; 96366; 96376; 97110; 97112; 97116; 97161; 97165; 97530; 99285-25; A9270; G0378; J0692; J0878; J1200; J2543; J2919; J7030; J7512; U0002

== ENCOUNTER 2025-03-01 09:35 | Emergency (ER) | payer MEDICARE ==
[~2025-03-01] VITALS: Ht 165.1 cm; Wt 93.3 kg
[~2025-03-01 09:35] MED LIST changes: +FUROSEMIDE20 MG PO; +LOPERAMIDE2 MG PO; +POTASSIUM CHLO10 ME1 PO
[2025-03-01] MEDS ORDERED: ondansetron HCL 4 MG/2 ML VIAL IV ONE (10:30)
[2025-03-01 11:09] LABS: BASOPHILS 0.1 % (0.1-1.2); EOSINOPHILS 0 % (0.7-5.8); HEMOGLOBIN 12.3 g/dL (11.2-15.7); LYMPHOCYTES 2.5 % (19.3-51.7); MCH 29.3 PG (25.6-32.2); MCHC 33.2 g/dL (32.2-35.5); MCV 88.1 fL (79.4-94.8); MONOCYTES 3.3 % (4.7-12.5); NEUTROPHILS 93.5 % (34.0-71.1); PLATELET COUNT 110 K/uL (182-369)
[2025-03-01 11:29] LABS: ALBUMIN 2.9 g/dL (3.4-5.0); ALBUMIN/GLOBULIN RATIO 0.66 (1.1-2.4); ANION GAP 14.4 (7-21); BILIRUBIN, TOTAL 1.2 mg/dL (0.2-1.0); BUN/CREATININE RATIO 14.85 (6.0-28.6); CALCIUM 8.9 mg/dL (8.5-10.1); CREATININE, SERUM 1.01 mg/dL (0.55-1.02); POTASSIUM 4.4 mmol/L (3.5-5.1); PROTEIN, TOTAL 7.3 g/dL (6.4-8.2)
[2025-03-01 11:56] LABS: BILIRUBIN, URINE NEGATIVE (negative); BLOOD/HGB, URINE LARGE (Negative); KETONE, URINE SMALL (Negative); LEUK ESTERASE, URINE NEGATIVE (negative); NITRITE, URINE NEGATIVE (negative)
[2025-03-01 11:57] LABS: BACTERIA, URINE NONE SEEN /hpf (negative); CASTS, URINE NONE SEEN \\lpf; COLLECTION TYPE, URINE CLEAN CATCH; CRYSTALS, URINE NONE SEEN (0-1+); EPITHELIAL CELLS, URINE 0 /lpf (0-1+); RED BLOOD CELLS, URINE >50 /hpf (0-5); REFLEX CULTURE, URINE Yes (No)
[2025-03-01 15:29] VITALS: BP 147/63
--- NOTE | 2025-03-04 12:10 | EKG ---
[facility] [address] [place] [address] Signed Normal sinus rhythm Low voltage QRS Borderline ECG When compared with ECG of 07-NOV-2024 22:23, No significant change was found Confirmed by Nura Calero DO ([id number]) on 03/04/2025 12:09:50 PM Electronically Signed By: NURA CALERO DO 03/04/25 1210 PATIENT NAME: HEDY MORA LEORA Electrocardiogram DATE OF : 50 PHYSICIAN: NURA CALERO DO REPORT #: [id number] REPORT IS CONFIDENTIAL AND NOT TO BE RELEASED WITHOUT AUTHORIZATION
== END 2025-03-01 15:31 | disposition home or self-care (01) ==
LOC: ED 09:35
PROVIDERS: Emergency Medicine
DX: B34.9 Viral infection, unspecified (principal); J45.909 Unspecified asthma, uncomplicated; Z79.899 Other long term (current) drug therapy; Z79.01 Long term (current) use of anticoagulants; Z88.1 Allergy status to other antibiotic agents; Z88.2 Allergy status to sulfonamides; Z91.048 Other nonmedicinal substance allergy status
CPT/HCPCS: 36415; 74177; 76705; 80053; 81001; 83690; 85025; 87088; 93005; 93010; 99285-25; Q9967

== ENCOUNTER 2025-03-01 21:08 | Emergency (ER) | payer MEDICARE ==
[~2025-03-01] VITALS: Ht 165.1 cm; Wt 93.3 kg
--- OUTSIDE RECORDS SUMMARY | 2025-03-01 21:12 | XMS ---
PreManage Notification: HEDY MORA Security Welder Assistant Events No recent Security Events currently on file CRITERIA MET - [facility] - 2 Visits in 30 Days CARE PROVIDERS JARET Stiles MD,FRANKIE Crystallography Teacher/Delivery Merchandiser Current PHONE: [phone] Rebecca has no Care Guidelines for this patient. Yolette VISIT COUNT (12 MO.) 5 [facility] TOTAL 5 NOTE: Visits indicate total known visits. ED/UCC VISIT TRACKING (12 MO.) 03/01/2025 21:09 [facility] TYPE: Emergency COMPLAINT: - FEVER,ALTERED LOC 03/01/2025 09:35 [facility] TYPE: Emergency COMPLAINT: - SOB/FEVER 11/07/2024 21:40 [facility] [place] TYPE: Emergency COMPLAINT: - COLD SYMPTOMS 08/30/2024 00:28 [facility] TYPE: Emergency COMPLAINT: - FEVER DIAGNOSES: - Allergy status to other antibiotic agents - Allergy status to other drugs, medicaments and biological substances - Allergy status to sulfonamides - Fever, unspecified - termite control service representative (current) use of anticoagulants - Other long-term (current) drug therapy - Other nonmedicinal substance allergy status - Personal history of other malignant neoplasm of rectum, rectosigmoid junction, and anus - Unspecified asthma, uncomplicated - Urinary tract infection, site not specified 03/04/2024 16:04 [facility] TYPE: Emergency COMPLAINT: - WEAKNESS INPATIENT VISIT TRACKING (12 MO.) 11/08/2024 12:49 [facility] TYPE: [facility] COMPLAINT: - ASTHMA EXACERBATION, CELLULITIS DIAGNOSES: - Adverse effect of antineoplastic and immunosuppressive drugs, initial encounter - Adverse effect of antineoplastic and immunosuppressive drugs, initial encounter - Allergy status to other drugs, medicaments and biological substances - Allergy status to other drugs, medicaments and biological substances - Allergy status to sulfonamides - Allergy status to sulfonamides - Bacteremia - Bacteremia - Cellulitis of left lower limb - Chronic obstructive pulmonary disease with (acute) exacerbation - Chronic obstructive pulmonary disease with (acute) exacerbation - termite control service representative (current) use of anticoagulants - FDC (current) use of anticoagulants - Other nonmedicinal substance allergy status - Other nonmedicinal substance allergy status - Personal history of antineoplastic chemotherapy - Personal history of antineoplastic chemotherapy - Personal history of irradiation - Personal history of irradiation - Personal history of other malignant neoplasm of rectum, rectosigmoid junction, and anus - Personal history of other malignant neoplasm of rectum, rectosigmoid junction, and anus - Rheumatic disorders of both mitral and tricuspid valves - Rheumatic disorders of both mitral and tricuspid valves - Streptococcus, group B, as the cause of diseases classified elsewhere - Streptococcus, group B, as the cause of diseases classified elsewhere - Toxic gastroenteritis and colitis - Toxic gastroenteritis and colitis - Tubal ligation status - Tubal ligation status - Unspecified asthma, uncomplicated - Unspecified asthma, uncomplicated - Unspecified atrial fibrillation - Unspecified atrial fibrillation 03/04/2024 20:[address] [facility] [place] TYPE: Medical Surgical COMPLAINT: - CELLULITIS DIAGNOSES: - Allergy status to other drugs, medicaments and biological substances - Allergy status to other drugs, medicaments and biological substances - Allergy status to sulfonamides - Allergy status to sulfonamides - Cellulitis of left lower limb - termite control service representative (current) use of anticoagulants - termite control service representative (current) use of anticoagulants - termite control service representative (current) use of inhaled steroids - FDC (current) use of inhaled steroids - Nausea with vomiting, unspecified - Nausea with vomiting, unspecified - Other long-term (current) drug therapy - Other long-term (current) drug therapy - Other nonmedicinal substance allergy status - Other nonmedicinal substance allergy status - Other specified postprocedural states - Other specified postprocedural states - Personal history of other malignant neoplasm of rectum, rectosigmoid junction, and anus - Personal history of other malignant neoplasm of rectum, rectosigmoid junction, and anus - Pneumonia, unspecified organism - Pneumonia, unspecified organism - Sepsis, unspecified organism - Sepsis, unspecified organism - Tubal ligation status - Tubal ligation status - Unspecified asthma, uncomplicated - Unspecified asthma, uncomplicated - Unspecified atrial fibrillation - Unspecified atrial fibrillation - Urinary tract infection, site not specified - Urinary tract infection, site not specified [email or web address]
[2025-03-01] MEDS ORDERED: CEFTRIAXONE SODIUM 2 GM in SODIUM CHLORIDE 0.9% 100 ML IV ONE (21:30)
[2025-03-01] MEDS ORDERED: DAPTOmycin 500 MG/10 ML VIAL IV ONE (21:30)
[2025-03-01] MEDS ORDERED: SODIUM CHLORIDE 0.9% 1,000 ML IV ONE (21:30)
[2025-03-01 21:32] LABS: BASOPHILS 0.3 % (0.1-1.2); EOSINOPHILS 0 % (0.7-5.8); HEMATOCRIT 39.5 % (34.1-44.9); HEMOGLOBIN 12.9 g/dL (11.2-15.7); LYMPHOCYTES 2.6 % (19.3-51.7); MCH 28.6 PG (25.6-32.2); MCHC 32.7 g/dL (32.2-35.5); MCV 87.6 fL (79.4-94.8); MONOCYTES 3.1 % (4.7-12.5); NEUTROPHILS 93.5 % (34.0-71.1); PLATELET COUNT 128 K/uL (182-369); RBC 4.51 M/uL (3.93-5.22)
[2025-03-01 21:40] LABS: BILIRUBIN, URINE NEGATIVE (negative); BLOOD/HGB, URINE LARGE (Negative); KETONE, URINE SMALL (Negative); LEUK ESTERASE, URINE NEGATIVE (negative); NITRITE, URINE NEGATIVE (negative); PH, URINE 7.5 (5-7)
[2025-03-01 21:42] LABS: PARTIAL THROMBOPLASTIN TIME 43.7 Sec (22.9-41.3)
[2025-03-01 21:43] LABS: INR 2.67 (0.80-1.30)
[2025-03-01 21:44] LABS: EPITHELIAL CELLS, URINE SQUAMOUS 1+ /lpf (0-1+); RED BLOOD CELLS, URINE >50 /hpf (0-5)
[2025-03-01 21:45] LABS: BACTERIA, URINE RARE /hpf (negative); CASTS, URINE NONE SEEN \\lpf; COLLECTION TYPE, URINE CLEAN CATCH; CRYSTALS, URINE NONE SEEN (0-1+); REFLEX CULTURE, URINE No (No); WHITE BLOOD CELLS, URINE 0-1 /HPF (0-5)
[2025-03-01] MEDS ORDERED: ACETAMINOPHEN 650 MG SUPP PR ONE (21:45)
[2025-03-01 21:47] LABS: ALBUMIN 2.9 g/dL (3.4-5.0); ALBUMIN/GLOBULIN RATIO 0.6 (1.1-2.4); ANION GAP 16.7 (7-21); BILIRUBIN, TOTAL 1.6 mg/dL (0.2-1.0); CALCIUM 8.6 mg/dL (8.5-10.1); CREATININE, SERUM 1.2 mg/dL (0.55-1.02); POTASSIUM 3.7 mmol/L (3.5-5.1); PROTEIN, TOTAL 7.7 g/dL (6.4-8.2)
[2025-03-01 21:51] LABS: LACTIC ACID, BLOOD 1.5 mmol/L (0.4-2.0)
[2025-03-01 22:30] LABS: CORONAVIRUS COVID-19 AG NEGATIVE (NEGATIVE)
[2025-03-01 22:50] LABS: AMPHETAMINES, URINE NEGATIVE (NEGATIVE); BARBITURATES, URINE NEGATIVE (NEGATIVE); BENZODIAZEPINE, URINE NEGATIVE (NEGATIVE); BUPRENORPHINE, URINE NEGATIVE (NEGATIVE); CANNABINOID, URINE NEGATIVE (NEGATIVE); COCAINE, URINE NEGATIVE (NEGATIVE); ECSTASY, URINE NEGATIVE (NEGATIVE); FENTANYL, URINE NEGATIVE (NEGATIVE); METHADONE, URINE NEGATIVE (NEGATIVE); OPIATES, URINE NEGATIVE (NEGATIVE); OXYCODONE, URINE NEGATIVE (NEGATIVE); PHENCYCLIDINE, URINE NEGATIVE (NEGATIVE)
[2025-03-01] MEDS ORDERED: LACTATED RINGER'S 1,000 ML IV SCH (23:00)
[2025-03-01] MEDS ORDERED: PHYTONADIONE 1 MG/0.5 ML AMP IV ONE (23:30)
[2025-03-01] MEDS ORDERED: PHYTONADIONE IV ONE (23:45)
[2025-03-01] MEDS ORDERED: SODIUM CHLORIDE 0.9% IV ONE (23:45)
[2025-03-02] MEDS ORDERED: ALBUTEROL SULFATE 0.083% 3 ML VIAL ONE (00:13)
[2025-03-02] MEDS ORDERED: ALBUTEROL SULFATE 0.083% 3 ML VIAL INH ONE ×2 (00:15→03:45)
[2025-03-02 02:11] LABS: ABO A; ANTIBODY SCREEN NEGATIVE; RH POSITIVE
[2025-03-02 03:53] VITALS: BP 111/56
== END 2025-03-02 03:32 | disposition short-term general hospital (02) ==
LOC: ED 21:08
PROVIDERS: Internal Medicine
DX: I62.00 Nontraumatic subdural hemorrhage, unspecified (principal); L03.115 Cellulitis of right lower limb; J45.909 Unspecified asthma, uncomplicated; Z79.01 Long term (current) use of anticoagulants; Z88.2 Allergy status to sulfonamides; Z91.048 Other nonmedicinal substance allergy status; Z88.1 Allergy status to other antibiotic agents; Z88.8 Allergy status to other drugs, medicaments and biological substances
CPT/HCPCS: 36415; 51702; 70450; 71045; 80053; 80307; 81001; 82550; 83605; 85025; 85610; 85730; 86850; 86900; 86901; 87040; 87077; 87186; 94640; 99285-25; A9270; G0480; J0696; J0878; J3430; J7030; J7121